=== PATIENT | female | born 1965 | race Caucasian/White ===

== ENCOUNTER → 2016-03-17 | Outpatient (CLI) | payer OTHER ==
[~2016-03-17] MED LIST: ACETAMINOPHEN/O1 TA1 PO; ALLERGY RELIEF10 M1 PO; AMBIEN10 M1 PO; ANASTROZOLE1 M1 PO; ARIPIPRAZOLE2 MG PO; ATIVAN1 MG PO; CELEXA40 MG PO; CLONAZEPAM1 MG PO; COLACE20 MG/5 ML PO; CYCLOBENZAPRINE5 M3 PO; CYMBALTA30 MG PO; CYMBALTA60 MG PO; DILAUDID2 M1 PO; ELIQUIS5 M1 PO; FLONASE 0.05% 121 EA NAS; GOLYTELY1 PDR PO; HYDROCODONE BIT1 T11 PO; LEVOFLOXACIN500 MG PO; MEDROL DOSEPAK4 MG PO; METOCLOPRAMIDE H5 MG PO; MIRTAZAPINE15 MG PO; NAPROSYN500 MG PO; NEURONTIN300 MG PO; NORCO 325 MG-101 TAB PO; NORTRIPTYLINE H10 MG PO; ONDANSETRON HYDR8 MG PO; OXYCODONE HCL10 M1 PO; OXYCODONE5 M1 PO; PANTOPRAZOLE SO40 MG PO; PERCOCET 325 MG1 TA7 PO; PHENERGAN25 M3 PO; PREDNISONE20 M1 PO; PRILOSEC20 M1 PO; PRILOSEC40 MG PO; PRISTIQ50 MG PO; REXULTI2 MG PO; ROBITUSSIN DM 101 OZ PO; SINGULAIR10 MG PO; TAMOXIFEN CITRA20 MG PO; VICO10300 PO; ZOFRAN8 MG PO; ZOVIRAX400 MG PO; Zofran4 MG PO
[2016-03-17 13:58] LABS: BUN 11 mg/dl (7-24); EST GLOM FILT AFRICAN AMERICAN > 60 ml/min
== END | disposition home or self-care (01) ==
LOC: CT 03-10 11:00 → LAB 13:25 → CT 14:00
PROVIDERS: Family Medicine
DX: R91.1 Solitary pulmonary nodule (principal); R07.89 Other chest pain; Z85.3 Personal history of malignant neoplasm of breast; Z90.11 Acquired absence of right breast and nipple; Z90.12 Acquired absence of left breast and nipple

== ENCOUNTER 2016-09-16 17:46 | Inpatient (IN) | payer OTHER ==
[~2016-09-16] VITALS: Ht 170.2 cm; Wt 60.6 kg
--- NOTE | ~2016-09-16 | CON ---
[place], [place] REPORT OF CONSULTATION NAME: JAG BHATTI UNIT #: [id number] ROOM: 416 DOCTOR: POLO LUGO PhD BIRTHDATE: [birth year] DOS: 09/17/2016 TIME: 11:15 a.m. LOCATION: ICU bed 12. HISTORY OF PRESENT ILLNESS: The patient is a 51-year-old female with primary medical history of breast cancer and possible lung metastasis. She presented to the ER last night after overdosing per her report on Ambien and Ativan. The patient stated that she took the medicine because she was feeling overwhelmed and then realized she did not want to and called her daughter who then transported her to the hospital. The patient is a known patient of mine, was last seen in our office yesterday by the nurse practitioner and then was in for counseling several months ago. Dr. Blackburn is her primary care doctor. MEDICAL HISTORY: Breast cancer, chronic pain, COPD, deep venous thrombosis, depression, generalized anxiety, GERD, insomnia, lung nodule, neuropathy, seasonal allergies and she does smoke cigarettes. Reports no other drug use. The patient was alert, awake and oriented to person, place, time. The patient did acknowledge that she impulsively took her medication, but she denied present suicidal ideation, plan or intent, stating that she knows that she does not want to . No history of hallucinations or delusions. The patient has been dealing with depression for several years coincided with her medical diagnosis of cancer in the outcome. She reports feeling very overwhelmed. Discussed options and asked if she felt she needed to be inpatient. She stated no, she does not want to and she just was overwhelmed and is having a hard time asking for help per her report. Discussed options, encouraged her to talk with the bilingual case manager from the hospital, who talked to her about housing options and she stated that she has talked to her daughter about going after a job and Family Services when discharged to seek assistance through them and I supported and encouraged her to do this. I also suggested she call the office upon discharge to get in to see her counselor and the nurse practitioner for medicine and she agreed to do that. She again denied being a risk of self-harm. DIAGNOSES: Major depression, recurrent, moderate, and anxiety. RECOMMENDATIONS: She can be discharged when medically stable and to follow up at the office for medication and counseling and she was open to the recommendations. I spoke with her treating physician and shared the recommendations and the outcome of my assessment. Thank you for the consult. [place], [place] REPORT OF CONSULTATION NAME: JAG BHATTI UNIT #: [id number] ROOM: [facility] DOCTOR: POLO LUGO PhD BIRTHDATE: [birth year] POLO LUGO, PhD CM:CONSTR:REPORT OF CONSULTATION 1148 09/18/16 0656 interface
[~2016-09-16 17:46] MED LIST changes: -ALLERGY RELIEF10 M1 PO; +ALLERGY RELIEF10 M2 PO; +SINGULAIR10 M1 PO; -SINGULAIR10 MG PO
[2016-09-16 17:56] VITALS: BP 135/87
[2016-09-16 18:39] LABS: BASO % 0.3 % (0.0-1.0); EOS % 0.2 % (1.0-4.0); HEMATOCRIT 38.9 % (37.0-47.0); HEMOGLOBIN 12.9 g/dl (12.0-16.0); LYMPH # 2.5 10*3/uL (1.3-4.4); LYMPH % 21.5 % (27.0-41.0); MEAN CELL VOLUME 90.5 fl (81.0-99.0); MEAN CORPUSCULAR HGB CONC 33.2 g/dl (33.0-37.0); MEAN PLATELET VOLUME 10.2 fl (9.6-12.3); MONO # 0.4 10*3/uL (0.1-1.0); MONO % 3.3 % (3.0-9.0); NEUT # 8.5 10*3/uL (2.3-7.9); NEUT % 74.4 % (47.0-73.0); PLATELET COUNT AUTOMATED 239 10*3/uL (130-400); RED CELL DISTRI WIDTH 15.4 % (0-14.5); WHITE BLOOD COUNT 11.5 10*3/uL (4.8-10.8)
[2016-09-16 18:41] VITALS: BP 132/66
[2016-09-16 18:52] LABS: BILIRUBIN NEGATIVE (NEGATIVE); BLOOD NEGATIVE (NEGATIVE); CLARITY SL CLOUDY (CLEAR); COLOR YELLOW (YELLOW); GLUCOSE NEGATIVE (NEGATIVE); KETONE NEGATIVE (NEGATIVE); LEUKO ESTERASE NEGATIVE (NEGATIVE); NITRITE POSITIVE (NEGATIVE); PH 6.5 (5.0-9.0); PROTEIN NEGATIVE (NEGATIVE); SPECIFIC GRAVITY <= 1.005 (1.005-1.030); UROBILINOGEN 0.2 E.U./dl (0.2-1.0)
[2016-09-16 18:56] LABS: ALBUMIN 3.7 gm/dl (3.1-4.5); ALKALINE PHOSPHATASE 92 U/L (45-117); BILIRUBIN, TOTAL 0.2 mg/dl (0.2-1.0); BUN 8 mg/dl (7-24); CARBON DIOXIDE 28 mmol/L (21-32); CHLORIDE 106 mmol/L (98-107); EST GLOM FILT AFRICAN AMERICAN > 60 ml/min; GLUCOSE 110 mg/dL (65-99); MAGNESIUM 2.2 mg/dL (1.5-2.1); POTASSIUM 3.2 mmol/L (3.5-5.1); SGOT/AST 19 IU/L (3-35); SGPT/ALT 21 U/L (12-78); SODIUM 143 mmol/L (136-145); TOTAL PROTEIN 6.8 gm/dL (6.4-8.2)
[2016-09-16 18:59] LABS: BACTERIA 4+; EPITHELIAL CELLS 0-2; RBC 0-2 rbc/hpf (0-2); URINE REFLEX COMMENT YES (NO); WBC 0-2 wbc/hpf (0-5)
[2016-09-16 19:00] LABS: C-REACTIVE PROTEIN < 0.29 MG/DL (0-0.3); TROPONIN I < 0.015 ng/ml (<0.045)
[2016-09-16 19:01] LABS: URINE AMPHETAMINES < 1000 (1000ng/ml); URINE BARBITURATES < 200 (200ng/ml); URINE COCAINE < 300 (300ng/ml)
[2016-09-16 19:15] VITALS: BP 134/78
[2016-09-16 20:00] VITALS: BP 139/94
[2016-09-17] VITALS: BP 101/72; BP 116/62
[2016-09-17 03:53] VITALS: BP 111/74
[2016-09-17 05:39] LABS: ALBUMIN 3.1 gm/dl (3.1-4.5); ALKALINE PHOSPHATASE 91 U/L (45-117); BILIRUBIN, TOTAL 0.2 mg/dl (0.2-1.0); BUN 8 mg/dl (7-24); CARBON DIOXIDE 27 mmol/L (21-32); CHLORIDE 109 mmol/L (98-107); CHOLESTEROL 180 mg/dL (<200); EST GLOM FILT AFRICAN AMERICAN > 60 ml/min; FREE T4 0.73 ng/dl (0.76-1.46); GLUCOSE 99 mg/dL (65-99); HDL CHOLESTEROL 59 mg/dl (40-60); LDL CHOLESTEROL 97 mg/dL (9-159); PHOSPHOROUS 3.3 mg/dL (2.5-4.9); POTASSIUM 3.4 mmol/L (3.5-5.1); SGOT/AST 21 IU/L (3-35); SGPT/ALT 21 U/L (12-78); SODIUM 144 mmol/L (136-145); TOTAL PROTEIN 6.6 gm/dL (6.4-8.2); TRIGLYCERIDES 119 mg/dl (<150); VLDL CHOLESTEROL 24 mg/dL (6-40)
[2016-09-17 05:54] LABS: HEMOGLOBIN A1c 5.8 % (4.8-5.6)
[2016-09-17 06:33] LABS: BASO # 0.1 10*3/uL (0.0-0.1); BASO % 0.6 % (0.0-1.0); EOS # 0.2 10*3/uL (0.0-0.4); EOS % 1.8 % (1.0-4.0); HEMATOCRIT 39.1 % (37.0-47.0); HEMOGLOBIN 12.3 g/dl (12.0-16.0); LYMPH # 3.5 10*3/uL (1.3-4.4); LYMPH % 39.9 % (27.0-41.0); MEAN CORPUSCULAR HGB 29.8 pg (27.0-31.0); MEAN CORPUSCULAR HGB CONC 31.5 g/dl (33.0-37.0); MEAN PLATELET VOLUME 10.6 fl (9.6-12.3); MONO # 0.3 10*3/uL (0.1-1.0); MONO % 3.9 % (3.0-9.0); NEUT # 4.7 10*3/uL (2.3-7.9); NEUT % 53.6 % (47.0-73.0); PLATELET COUNT AUTOMATED 234 10*3/uL (130-400); RED BLOOD COUNT 4.13 10*6/uL (4.10-5.10); RED CELL DISTRI WIDTH 15.8 % (0-14.5); WHITE BLOOD COUNT 8.8 10*3/uL (4.8-10.8)
[2016-09-17 06:43] LABS: VITAMIN D, 25-HYDROXY 20.2 ng/mL (30-100)
[2016-09-17 06:44] LABS: FOLIC ACID 4.46 ng/mL (>5.38)
[2016-09-17 06:46] LABS: MEAN CELL VOLUME 94.7 fl (81.0-99.0)
[2016-09-17 08:00] VITALS: BP 112/81
[2016-09-17 12:00] VITALS: BP 122/72; BP 150/94
[2016-09-17 16:00] VITALS: BP 113/70
[2016-09-17 20:00] VITALS: BP 123/78
[2016-09-18] VITALS: BP 115/65
[2016-09-18 08:00] VITALS: BP 113/78
[2016-09-18] MEDS ORDERED: PERCOCET 325 MG1 TA7 PO (10:45)
== END 2016-09-18 12:12 | disposition home or self-care (01) | DRG 917 ==
LOC: ED 17:46 → EDHOLD 18:59 → 4E 18:59 → ICCU 18:59 → 4E 09-17 18:39
PROVIDERS: Internal Medicine Hospice and Palliative Medicine; Student in an Organized Health Care Education/Training Program
DX: T42.6X2A Poisoning by other antiepileptic and sedative-hypnotic drugs, intentional self-harm, initial encounter (principal); A41.9 Sepsis, unspecified organism; E83.41 Hypermagnesemia; C50.912 Malignant neoplasm of unspecified site of left female breast; C50.911 Malignant neoplasm of unspecified site of right female breast; F33.1 Major depressive disorder, recurrent, moderate; N39.0 Urinary tract infection, site not specified; T50.902A Poisoning by unspecified drugs, medicaments and biological substances, intentional self-harm, initial encounter; R91.1 Solitary pulmonary nodule; F41.1 Generalized anxiety disorder; J30.2 Other seasonal allergic rhinitis; K21.9 Gastro-esophageal reflux disease without esophagitis; F17.210 Nicotine dependence, cigarettes, uncomplicated; F29 Unspecified psychosis not due to a substance or known physiological condition; R73.9 Hyperglycemia, unspecified; G89.29 Other chronic pain; J44.9 Chronic obstructive pulmonary disease, unspecified; M25.552 Pain in left hip; G62.9 Polyneuropathy, unspecified; E87.6 Hypokalemia; M54.16 Radiculopathy, lumbar region; Z88.5 Allergy status to narcotic agent; Z88.8 Allergy status to other drugs, medicaments and biological substances; Z82.49 Family history of ischemic heart disease and other diseases of the circulatory system; Z86.718 Personal history of other venous thrombosis and embolism; Z79.01 Long term (current) use of anticoagulants; Z90.13 Acquired absence of bilateral breasts and nipples; Z90.49 Acquired absence of other specified parts of digestive tract; Z59.0 Homelessness; Z71.6 Tobacco abuse counseling; Z17.0 Estrogen receptor positive status [ER+]; Y92.89 Other specified places as the place of occurrence of the external cause; Z80.3 Family history of malignant neoplasm of breast; Z83.3 Family history of diabetes mellitus

== ENCOUNTER → 2016-09-25 | Outpatient (CLI) | payer OTHER | END | disposition home or self-care (01) | LOC: NM 09:43 | DX: C50.919 Malignant neoplasm of unspecified site of unspecified female breast (principal); M17.0 Bilateral primary osteoarthritis of knee; K08.9 Disorder of teeth and supporting structures, unspecified; Z90.13 Acquired absence of bilateral breasts and nipples ==

== ENCOUNTER → 2016-10-02 | Outpatient (CLI) | payer OTHER | END | disposition home or self-care (01) | LOC: MRI 10:00 | DX: M48.06 Spinal stenosis, lumbar region (principal); M76.9 Unspecified enthesopathy, lower limb, excluding foot; Z85.3 Personal history of malignant neoplasm of breast ==

== ENCOUNTER → 2016-10-13 | Outpatient (CLI) | payer OTHER | END | disposition home or self-care (01) | LOC: RAD 09:57 | DX: M47.896 Other spondylosis, lumbar region (principal); M54.6 Pain in thoracic spine; Z85.3 Personal history of malignant neoplasm of breast ==

== ENCOUNTER 2016-12-13 22:12 | Inpatient (IN) | payer OTHER ==
[~2016-12-13] VITALS: Ht 170.2 cm; Wt 58.1 kg
--- NOTE | ~2016-12-13 | CON ---
[place], [place] REPORT OF CONSULTATION NAME: JAG BHATTI UNIT #: [id number] ROOM: 415 DOCTOR: PEACE GARCIA BIRTHDATE: [birth year] DOS: 12/15/2016 LOCATION: The patient was in ICU bed 6. HISTORY OF PRESENT ILLNESS: The patient is a 51-year-old female who presented to the ED with suicidal ideations per reports. The patient states that she is a breast cancer survivor. She has chronic pain, status post double mastectomy. She states that she had been taking Percocet as prescribed by Dr. Blackburn -4 times a day for the past 10 years. In July of this year, she said she did have an intentional overdose, but regretted it immediately and called for assistance. After that time, her Percocets were discontinued by Dr. Blackburn. The patient states since that time she has been having withdrawal symptoms and trying to manage her pain on her own. The patient states that she does not wish to hurt herself on this admission, nor has she had any suicidal ideations throughout the last week. She stated she is not trying to hurt herself and that she was just trying to help with her pain. She admits to cocaine, amphetamines and marijuana use. Her urine drug screen was positive for all these. She is agreeable to treatment at this time and would like to continue as soon as possible. She believes that if she can get through withdrawal from the Percocet, she will have a better quality of life. MEDICATIONS: The patient is on Benadryl, Ativan. PAST MEDICAL HISTORY: Significant for breast cancer, COPD, DVT, depression, generalized anxiety disorder, GERD, insomnia, overdose, suicidal ideation and suicide attempt. SOCIAL HISTORY: The patient has a history of amphetamine abuse, cocaine abuse. She denies alcohol. Admits to marijuana abuse, opiate abuse and smoker. PHYSICAL EXAMINATION: The patient is awake, alert and oriented in all 3 spheres. She initially knew that she was at [facility] and what the date was. She denies any hallucinations or delusions at this time. She again denies suicidal ideation. The patient states she is active in counseling with Zita Briones and plans to follow up with her upon discharge. The patient is currently staying with her children who are very supportive and involved and she plans to return home with them at the time of discharge from substance use treatment. DIAGNOSES: Depression, generalized anxiety disorder. RECOMMENDATIONS: The patient should return to a substance abuse treatment upon discharge. From there, she will follow up outpatient with her counselor and drug treatment. The patient will return home with her children. Again, this patient is not suicidal at this time per her repeated denial of any attempts or plan to hurt herself. Thank you very much for this consult. [place], [place] REPORT OF CONSULTATION NAME: JAG BHATTI UNIT #: [id number] ROOM: [facility] DOCTOR: PEACE GARCIA BIRTHDATE: [birth year] [place] CM:CONSTR:REPORT OF CONSULTATION 1308 12/15/16 2250 interface
[2016-12-13 22:27] VITALS: BP 146/98
[2016-12-13 22:34] LABS: BASO # 0.1 10*3/uL (0.0-0.1); BASO % 1.2 % (0.0-1.0); EOS # 0.2 10*3/uL (0.0-0.4); EOS % 2.3 % (1.0-4.0); HEMATOCRIT 43.2 % (37.0-47.0); HEMOGLOBIN 13.9 g/dl (12.0-16.0); LYMPH # 3.5 10*3/uL (1.3-4.4); LYMPH % 43.5 % (27.0-41.0); MEAN CELL VOLUME 92.5 fl (81.0-99.0); MEAN CORPUSCULAR HGB 29.8 pg (27.0-31.0); MEAN CORPUSCULAR HGB CONC 32.2 g/dl (33.0-37.0); MONO # 0.4 10*3/uL (0.1-1.0); MONO % 5.2 % (3.0-9.0); NEUT # 3.9 10*3/uL (2.3-7.9); NEUT % 47.7 % (47.0-73.0); PLATELET COUNT AUTOMATED 236 10*3/uL (130-400); RED BLOOD COUNT 4.67 10*6/uL (4.10-5.10); RED CELL DISTRI WIDTH 14.7 % (0-14.5); WHITE BLOOD COUNT 8.1 10*3/uL (4.8-10.8)
[2016-12-13 22:50] LABS: ALBUMIN 3.9 gm/dl (3.1-4.5); ALKALINE PHOSPHATASE 101 U/L (45-117); BUN 6 mg/dl (7-24); CHLORIDE 105 mmol/L (98-107); CREATININE 0.88 mg/dL (0.55-1.02); POTASSIUM 3.4 mmol/L (3.5-5.1); SGOT/AST 17 IU/L (3-35); SGPT/ALT 19 U/L (12-78); SODIUM 141 mmol/L (136-145); TOTAL PROTEIN 7.7 gm/dL (6.4-8.2)
[2016-12-13 22:58] LABS: BILIRUBIN NEGATIVE (NEGATIVE); BLOOD NEGATIVE (NEGATIVE); CLARITY CLEAR (CLEAR); COLOR YELLOW (YELLOW); GLUCOSE NEGATIVE (NEGATIVE); KETONE NEGATIVE (NEGATIVE); LEUKO ESTERASE NEGATIVE (NEGATIVE); NITRITE NEGATIVE (NEGATIVE); PH 6.5 (5.0-9.0); SPECIFIC GRAVITY <= 1.005 (1.005-1.030); UROBILINOGEN 0.2 E.U./dl (0.2-1.0)
[2016-12-13 23:05] LABS: BACTERIA TRACE; EPITHELIAL CELLS 30-35
[2016-12-13 23:08] LABS: URINE AMPHETAMINES > 1000 (1000ng/ml); URINE BARBITURATES < 200 (200ng/ml); URINE BENZODIAZEPINES < 200 (200ng/ml); URINE CANNABINOIDS (THC) > 50 (50ng/ml); URINE COCAINE > 300 (300ng/ml); URINE METHADONE < 300 (300ng/ml); URINE OPIATES > 300 (300ng/ml)
[2016-12-13 23:09] LABS: URINE PHENCYCLIDINE < 25 (25ng/ml)
--- NOTE | 2016-12-13 23:21 | NUR ---
PT IN ROOM, DAUGHTER PRESENT, STILL CRYING
--- NOTE | 2016-12-14 00:24 | NUR ---
PT SITTING UP IN BED, NO ACUTE DISTRESS
--- NOTE | 2016-12-14 00:46 | NUR ---
PT LYING IN BED, REQUESTING MORE ATIVAN AND SOMETHING FOR HER BACK PAIN, DENIES SUICIDAL IDEATIONS "NOW"
[2016-12-14 02:53] VITALS: BP 134/86
--- NOTE | 2016-12-14 04:05 | NUR ---
PT RESTING IN BED QUIETLY, NO DISTRESS NOTED
--- NOTE | 2016-12-14 04:54 | NUR ---
PT RESTING IN BED. NO REQUESTS AT THIS. NO VIS SIGNS OF DISTRESS
[2016-12-14 06:07] VITALS: BP 117/74
--- NOTE | 2016-12-14 06:08 | NUR ---
PT RESTING IN BED. NO VIS SIGNS OF DISTRESS OR NEEDS EXPRESSED AT THIS TIME.
--- NOTE | 2016-12-14 06:12 | NUR ---
PT RESTING IN BED. NO VIS SIGNS OF DISTRESS. VSS. DANIELLE HERNANDEZ CONATCTED BY DR ALCANTARA
--- NOTE | 2016-12-14 07:10 | NUR ---
RECEIVED REPORT FROM PM NURSE. RESTING QUIETLY IN BED, RIGHT LATERAL POSITION. NO SIGN OF DISTRESS. BREAKFAST ORDER ENTERED.
--- NOTE | 2016-12-14 07:44 | NUR ---
PATIENT RESTING IN BED. BREAKFAST AT BEDSIDE. STATES SHES NOT VERY HUNGRY. NO COMPLAINTS AT THIS TIME. BED IN LOW. CALL LIGHT IN REACH.
--- NOTE | 2016-12-14 08:44 | NUR ---
RESTING IN BED. NO SIGN OF DISTRESS. IN VIEW OF NURSES STATION.
[2016-12-14 08:51] VITALS: BP 118/84
--- NOTE | 2016-12-14 10:11 | NUR ---
met with client who is known to me , she denies suicidal ideation, she said that the main issue is that she is abusing percosets and she wants to get off of these and get into a [facility]ox[facility] clinic, she thinks that she is withdrawing. [facility], i did talk with the doctor and we will see what they want to do.
--- NOTE | 2016-12-14 10:25 | NUR ---
DANIELLE HERNANDEZ WAS IN ROOM TO SPEAK WITH PATIENT.
--- NOTE | 2016-12-14 10:55 | NUR ---
RESTING QUIETLY IN BED. NO COMPLAINTS. DANIELLE WAS IN TO SEE PATIENT FOR EVAL. IN VIEW OF NURSES DESK.
--- NOTE | 2016-12-14 11:46 | NUR ---
patient in bed, left lateral position. no sign of distress. in view of nurses station.
--- NOTE | 2016-12-14 12:45 | NUR ---
PT SITTING UP IN BED. DANIELLE CEBALLOSW AT BEDSIDE. NO SIGN OF DISTRESS. IN VIEW OF NURSES STATION.
--- NOTE | 2016-12-14 12:53 | NUR ---
[facility] STAFF IN ROOM SPEAKIGN WITH PATIENT.
--- NOTE | 2016-12-14 13:30 | NUR ---
REPORT CALLED TO DANIELLE RN FROM [facility]IANA BEAUCHAMP. PATIENT STABLE AND READY FOR TRANSPORT TO [facility].
[2016-12-14 13:45] VITALS: BP 120/70
--- NOTE | 2016-12-14 13:45 | NUR ---
Time: 1344 A 51 year old FEMALE admitted to ICCU under services of KAYLA BELLE DO. Pt. arrived via wheel chair from ER. Chief complaint: ADMITTED FROM ER WITH SUICIDAL IDEATIONS AND SUBSTANCE ABUSE. TO BE ADMITTED TO THE [facility] PROGRAM. DANIELLE KENNEDY
[2016-12-14] MEDS ORDERED: ATIVAN0.5 MG PO (14:04)
--- NOTE | 2016-12-14 14:04 | NUR ---
MED REC COMPLETED WITH [facility], PT DOES USUALLY TAKE ALL THESE MEDS BUT HAS RAN OUT OF PRESCRIPTIONS D/TY DR ISAAC LEAVING. TIM VALENCIA FILLED TAMOXIFAN, ATIVAN AND CYMBALTA IN NOVEMBER. ALL OTHER SCRIPTS HAD NOT BEEN REFILLED SINCE 09/09/16. DR CARLIE MADDOX.
[2016-12-14 14:15] LABS: BASO # 0.1 10*3/uL (0.0-0.1); BASO % 1.2 % (0.0-1.0); EOS # 0.2 10*3/uL (0.0-0.4); HEMATOCRIT 43.6 % (37.0-47.0); HEMOGLOBIN 14.3 g/dl (12.0-16.0); LYMPH # 2.4 10*3/uL (1.3-4.4); LYMPH % 30.9 % (27.0-41.0); MEAN CELL VOLUME 90.6 fl (81.0-99.0); MEAN CORPUSCULAR HGB 29.7 pg (27.0-31.0); MEAN CORPUSCULAR HGB CONC 32.8 g/dl (33.0-37.0); MEAN PLATELET VOLUME 10.1 fl (9.6-12.3); MONO # 0.4 10*3/uL (0.1-1.0); MONO % 5.8 % (3.0-9.0); NEUT # 4.5 10*3/uL (2.3-7.9); NEUT % 58.7 % (47.0-73.0); PLATELET COUNT AUTOMATED 240 10*3/uL (130-400); RED BLOOD COUNT 4.81 10*6/uL (4.10-5.10); RED CELL DISTRI WIDTH 14.6 % (0-14.5); WHITE BLOOD COUNT 7.6 10*3/uL (4.8-10.8)
[2016-12-14 14:23] LABS: INTERNATIONAL NORM RATIO 1.1 (2.0-3.5)
[2016-12-14 14:30] LABS: ALBUMIN 3.7 gm/dl (3.1-4.5); ALKALINE PHOSPHATASE 99 U/L (45-117); BUN 5 mg/dl (7-24); CHLORIDE 105 mmol/L (98-107); CREATININE 0.79 mg/dL (0.55-1.02); LIPASE 94 U/L (73-393); POTASSIUM 3.7 mmol/L (3.5-5.1); SGOT/AST 24 IU/L (3-35); SGPT/ALT 21 U/L (12-78); SODIUM 141 mmol/L (136-145); TOTAL PROTEIN 7.3 gm/dL (6.4-8.2)
--- NOTE | 2016-12-14 14:30 | NUR ---
Recieved to ICCU-6 post admission to medical floor for possible suicidal ideation. Pt. adamantly denies suicidal ideation on arrival see VS from nursing floor. Voiced concern over medication distribution. Dr. Fraire in and spoke w/ pt. explaining plan of care. Urine HCG resulted.
--- NOTE | 2016-12-14 14:30 | NUR ---
PATIENT TRANSFERRED TO ICCU. REPORT GIVEN TO JOSUÉ ENGEL.
[2016-12-14 14:32] LABS: ETHYL ALCOHOL < 3.0 mg/dl (<3)
--- NOTE | 2016-12-14 15:33 | NUR ---
1450 Medicated for c/o leg cramping and anxiety. smell of ciggarettes in room. Pt. admits to smoking in the bathroom. ciggarettes confiscated and placed in med drawer. Pt. removed monitor and dressed in street cloths. Dr. Palacios office was notified of consult.
--- NOTE | 2016-12-14 16:28 | NUR ---
Medicatedfor c/o stomach cramping and generalized aches.
--- NOTE | 2016-12-14 18:54 | NUR ---
Medicated for continued c/o restless and cramping legs as well as generalized discomfort. Requesting nicotrol INH. Pharmacy was called.
--- NOTE | 2016-12-14 19:56 | NUR ---
PT. RESTING IN BED. NO IV SITE NOTED. LUNGS CLEAR BUT DIMINISHED BILAT, PULSE OX 95% ON RA. ABDOMEN SOFT, NONDISTENDED AND NORMO. NO PERIPHERAL EDEMA NOTED. RESP. EASY AND REG, NO DISTRESS. HARVEY KOEHLER RN
[2016-12-14 20:00] VITALS: BP 105/72
--- NOTE | 2016-12-14 20:57 | NUR ---
PT. GIVEN BENTYL, DESYREL, ROBAXIN AND VISTARIL ORDERED FOR ABD AND MUSCLE CRAMPS, ANXIETY AND SLEEP. HARVEY KOEHLER RN
[2016-12-15] VITALS: BP 104/70
--- NOTE | 2016-12-15 00:04 | NUR ---
PT. SLEEPING, BENTYL, DESYREL, ROBAXIN AND VISTARIL EFFECTIVE. HARVEY KOEHLER RN
--- NOTE | 2016-12-15 00:29 | NUR ---
MOTRIN GIVEN AT 0030 FOR GENERALIZED ACHES AND PAINS.
--- NOTE | 2016-12-15 02:26 | NUR ---
PT. SLEEPING, MOTRIN EFFECTIVE FOR GENERAL ACHES AND PAINS. HARVEY KOEHLER RN
--- NOTE | 2016-12-15 03:39 | NUR ---
PT. GIVEN BENTYL, ROBAXIN AND VISTARIL ORDERED FOR CRAMPS AND ANXIETY.
[2016-12-15 04:00] VITALS: BP 98/57
--- NOTE | 2016-12-15 04:09 | NUR ---
PT. SLEEPING, BENTYL, ROBAXIN AND VISTARIL EFFECTIVE. HARVEY KOEHLER RN
--- NOTE | 2016-12-15 07:54 | NUR ---
Shift chart check completed.24 HR chart check completed. On assessment patient is alert and oriented, sitting up in bed, eating breakfast. She offered no voiced complaints. Her voice is soft, she makes eye contact, her affect is flat. She denies suicidal feelings at this time.
[2016-12-15 08:00] VITALS: BP 90/60
--- NOTE | 2016-12-15 10:45 | NUR ---
PT WAS MEDICATED AT 0917 WITH REQUIP FOR RESTLESS LEGS, MOTRIN AND ROBAXIN FOR "ACHES AND PAIN". SHE'S LYING QUIETLY IN BED, WAITING FOR DR FRANK PALMA TO COME IN FOR CONSULTATION.
[2016-12-15 12:00] VITALS: BP 102/52
--- NOTE | 2016-12-15 12:48 | NUR ---
DR DAVEY NOTIFIED THAT PEACE GARCIA HAS SEEN PATIENT AND WILL BE DOCUMENTING THAT PT IS NOT SUICIDAL. PT IS RESTING SINCE EARLIER PRN MEDS. WILL CONTINUE TO MONITOR FOR WITHDRAWL SYMPTOMS.
--- NOTE | 2016-12-15 13:19 | NUR ---
PRODUCT STRATEGY DIRECTOR REMOVED PT NOW NON-MONITORED. HER SCHEDULED SUBUTEX GIVEN AND A PRN DOSE OF VISTARIL FOR ANXIETY.
--- NOTE | 2016-12-15 14:44 | NUR ---
AMBULATORY TO 415-2, IN STABLE CONDITION, WITH ALL OF HER BELONGINGS. HER CIGARETTES LOCKED IN THE WALLEROO. REPORT TO JOSUÉ.
--- NOTE | 2016-12-15 15:50 | NUR ---
Patient reports the following symptoms of withdrawal: body aches, HIPS Patient given scheduled/PRN ROBAXIN AND TYLENOL 500MG to control withdrawal symptoms. Close observation will be maintained. RATES PAIN A 9/10.
[2016-12-15 16:00] VITALS: BP 104/63
--- NOTE | 2016-12-15 18:34 | NUR ---
Medicatedforpainandanxiety.seee-mar
[2016-12-15 20:00] VITALS: BP 83/48
--- NOTE | 2016-12-15 21:57 | NUR ---
PT REQUESTED PAIN MEDICATION FOR GENERALIZED PAIN RATED AT AN 8. ALSO REQUESTED MEDICATION FOR INSOMNIA. TRAZADONE AND TYLENOL WERE GIVEN.
--- NOTE | 2016-12-15 22:49 | NUR ---
TRAZADONE INEFFECTIVE PER PT. SEE MAR FOR INTERVENTION. TYLENOL EFFECTIVE PER PT. RATES PAIN AT 3 OUT OF 10.
--- NOTE | 2016-12-15 23:42 | NUR ---
PT REQUESTED MEDICATION FRO MUSCLE SPASMS. ROBAXIN GIVEN.
--- NOTE | 2016-12-15 23:46 | NUR ---
TRAZADONE WAS INEFFECTIVE PER PT. REQUESTED ANOTHER. 2ND DOSE OF TRAZADONE GIVEN.
[2016-12-16] VITALS: BP 86/57
--- NOTE | 2016-12-16 00:36 | NUR ---
TRAZADONE AND ROBAXIN EFFECTIVE. PT IN BED SLEEPING. NO DISTRESS NOTED.
--- NOTE | 2016-12-16 05:55 | NUR ---
PT REQUESTED MEDICATION FOR GENERALIZED PAIN AND MUSCLE PAIN/SPASMS. PT RATES PAIN AT 7 OUT OF 10. TYLENOL AND ROBAXIN GIVEN.
--- NOTE | 2016-12-16 06:32 | NUR ---
TYLENOL AND ROBAXIN EFFECTIVE. PT REPORTS DECREASED MUSCLE PAIN/SPAMS AND RATES PAIN AT 3 OUT OF 10.
[2016-12-16 08:00] VITALS: BP 92/56
--- NOTE | 2016-12-16 08:37 | NUR ---
PRN VISTARIL GIVEN FOR ANXIETY.
--- NOTE | 2016-12-16 08:38 | NUR ---
PRN REQUIP GIVEN FOR RESTLESS LEGS.
--- NOTE | 2016-12-16 09:38 | NUR ---
PRN REQUIP EFFECTIVE, PT DENIES ANY RESTLESS LEG.
--- NOTE | 2016-12-16 09:38 | NUR ---
PRN VISTARIL EFFECTIVE, PT RESTING COMFORTABLY.
[2016-12-16 12:00] VITALS: BP 102/57
--- NOTE | 2016-12-16 13:40 | NUR ---
PATIENT SET UP APPOINTMENT WITH [facility] IN [place]. PATIENT STATED THAT SHE HAS AN APPOINTMENT FOR TOMORROW. [facility] OFFERED A LIST OF SELF-HELP MEETINGS, PATIENT DECLINED. YEIMY ANDRES B.A. MOTOR POOL DRIVER
--- NOTE | 2016-12-16 14:13 | NUR ---
prn vistaril given for pt report of anxiety.
--- NOTE | 2016-12-16 14:14 | NUR ---
prn motrin and robaxin given for 7/10 muscle aches of arms and legs and back pain.
--- NOTE | 2016-12-16 14:35 | NUR ---
DR DAVEY NOTIFIED THAT PATIENT HAS AN APPT [place] AT 12:[address] [place] [address].
--- NOTE | 2016-12-16 15:35 | NUR ---
PRN PAIN MEDS EFFECTIVE, PT RATES HER PAIN 4/10 TO BACK.
[2016-12-16 16:31] VITALS: BP 94/58
[2016-12-16 20:00] VITALS: BP 86/55
--- NOTE | 2016-12-16 20:00 | NUR ---
PT IN BED, RESTING QUIETLY. LUNGS DIMINISHED AND CLEAR. DENIES DYSURIA, FREQUENCY AT THIS TIME. PT REQUESTED ROBAXIN, REQUIP, AND VISTARIL. MEDS WERE GIVEN PER REQUEST. NO OTHER COMPLAINTS AT THIS TIME.
--- NOTE | 2016-12-16 22:49 | NUR ---
PT REQUESTED PRN MEDS FOR PAIN, MUSCLE SPASMS, AND INSOMNIA. MEDS GIVEN. SEE MAR.
--- NOTE | 2016-12-16 23:28 | NUR ---
PT STATES MEDICATIONS WERE EFFECTIVE. DECERASED PAIN, MUSCLE SPASMS NOTED.
--- NOTE | 2016-12-16 23:38 | NUR ---
TRAZADONE INEFFECTIVE. PT REQUESTED SECOND DOSE. GIVEN.
[2016-12-17] VITALS: BP 103/54
--- NOTE | 2016-12-17 04:21 | NUR ---
PT. C/O BACK AND LEG PAIN . RATED "7" TYLENOL AND ROBAXIN GIVEN FOR THIS. VISTARIL GIVEN FOR C/O ANXIETY. SEE MAR.
--- NOTE | 2016-12-17 05:20 | NUR ---
TYLENOL VISTARIL AND ROBAXIN EFFECTIVE FOR DISCOMFORT AND ANXIETY PER PT.
[2016-12-17 06:17] LABS: BASO # 0.1 10*3/uL (0.0-0.1); BASO % 1.1 % (0.0-1.0); EOS # 0.2 10*3/uL (0.0-0.4); EOS % 4.5 % (1.0-4.0); HEMATOCRIT 37.5 % (37.0-47.0); HEMOGLOBIN 11.9 g/dl (12.0-16.0); LYMPH # 2.4 10*3/uL (1.3-4.4); LYMPH % 45.9 % (27.0-41.0); MEAN CELL VOLUME 94.2 fl (81.0-99.0); MEAN CORPUSCULAR HGB 29.9 pg (27.0-31.0); MEAN CORPUSCULAR HGB CONC 31.7 g/dl (33.0-37.0); MEAN PLATELET VOLUME 10.7 fl (9.6-12.3); MONO # 0.3 10*3/uL (0.1-1.0); MONO % 5.9 % (3.0-9.0); NEUT # 2.2 10*3/uL (2.3-7.9); NEUT % 42.4 % (47.0-73.0); PLATELET COUNT AUTOMATED 204 10*3/uL (130-400); RED BLOOD COUNT 3.98 10*6/uL (4.10-5.10); RED CELL DISTRI WIDTH 14.4 % (0-14.5); WHITE BLOOD COUNT 5.3 10*3/uL (4.8-10.8)
[2016-12-17 06:44] LABS: CREATININE 0.78 mg/dL (0.55-1.02)
[2016-12-17 08:00] VITALS: BP 96/50
--- NOTE | 2016-12-17 08:47 | NUR ---
PT GIVEN REQUIP FOR RESTLESS LEGS.
--- NOTE | 2016-12-17 08:47 | NUR ---
PT GIVEN MOTRIN FOR GENERALIZED ACHES AND PAINS RATED 7/10.
--- NOTE | 2016-12-17 09:17 | NUR ---
PT STATES PAIN LEVEL REDUCED TO 5/10.
--- NOTE | 2016-12-17 09:18 | NUR ---
PT STATES RESTLESSNESS IS REDUCED POST RESTILE ADMIN.
[2016-12-17] MEDS ORDERED: NATURE'S BLEND F1 MG PO (09:38)
[2016-12-17] MEDS ORDERED: NATURE'S BLEND100 M2 PO (09:38)
[2016-12-17] MEDS ORDERED: THERA TABLET400 MCG PO (09:38)
[2016-12-17] MEDS ORDERED: METHOCARBAMOL750 M1 PO (10:46)
--- NOTE | 2016-12-17 11:40 | NUR ---
Discharge instructions reviewed with patient/family. Patient receptive and verbalizes understanding. Follow-up care arranged. Written instructions given to patient/family. PATIENT AMBULATORY OFF FLOOR. PICKED UP BY FAMILY. SCRIPTS SENT TO PHARMACY AND PATIENT NOTIFIED. KAELYN HORVATH
== END 2016-12-17 11:40 | disposition home or self-care (01) | DRG 897 ==
LOC: ED 22:12 → ICCU 12-14 13:04 → EDHOLD 12-14 13:04 → 4E 12-14 13:12 → 5E 12-14 13:12 → ICCU 12-14 13:55 → 4E 12-15 15:00
PROVIDERS: Internal Medicine; Student in an Organized Health Care Education/Training Program; ADMIT Internal Medicine
DX: F11.23 Opioid dependence with withdrawal (principal); G62.9 Polyneuropathy, unspecified; F32.9 Major depressive disorder, single episode, unspecified; J44.9 Chronic obstructive pulmonary disease, unspecified; K21.9 Gastro-esophageal reflux disease without esophagitis; F41.1 Generalized anxiety disorder; G47.00 Insomnia, unspecified; G89.29 Other chronic pain; F14.10 Cocaine abuse, uncomplicated; G25.81 Restless legs syndrome; F17.210 Nicotine dependence, cigarettes, uncomplicated; F15.10 Other stimulant abuse, uncomplicated; F12.10 Cannabis abuse, uncomplicated; Z85.3 Personal history of malignant neoplasm of breast; Z86.718 Personal history of other venous thrombosis and embolism; Z87.440 Personal history of urinary (tract) infections; Z90.13 Acquired absence of bilateral breasts and nipples; Z59.0 Homelessness; Z90.49 Acquired absence of other specified parts of digestive tract; Z90.710 Acquired absence of both cervix and uterus; Z86.010 Personal history of colon polyps; Z82.49 Family history of ischemic heart disease and other diseases of the circulatory system; Z83.3 Family history of diabetes mellitus; Z88.6 Allergy status to analgesic agent; Z88.1 Allergy status to other antibiotic agents; Z79.899 Other long term (current) drug therapy; Z71.6 Tobacco abuse counseling

== ENCOUNTER 2017-03-06 00:46 | Inpatient (IN) | payer MEDICARE, MEDICAID ==
[~2017-03-06] VITALS: Ht 170.1 cm; Wt 59.2 kg
[2017-03-06] VITALS (11 sets, daily range): BP systolic 90–114; BP diastolic 52–74
[~2017-03-06 00:46] MED LIST changes: +ATIVAN0.5 MG PO; +METHOCARBAMOL750 M1 PO; +NATURE'S BLEND F1 MG PO; +NATURE'S BLEND100 M2 PO; +THERA TABLET400 MCG PO
[2017-03-06 01:06] LABS: BILIRUBIN NEGATIVE (NEGATIVE); BLOOD NEGATIVE (NEGATIVE); CLARITY CLEAR (CLEAR); COLOR YELLOW (YELLOW); GLUCOSE NEGATIVE (NEGATIVE); KETONE NEGATIVE (NEGATIVE); LEUKO ESTERASE NEGATIVE (NEGATIVE); NITRITE NEGATIVE (NEGATIVE); PH 5.5 (5.0-9.0); SPECIFIC GRAVITY <= 1.005 (1.005-1.030); UROBILINOGEN 0.2 E.U./dl (0.2-1.0)
[2017-03-06 01:18] LABS: BACTERIA 2+; EPITHELIAL CELLS 45-50; URINE AMPHETAMINES < 1000 (1000ng/ml); URINE BARBITURATES < 200 (200ng/ml); URINE BENZODIAZEPINES < 200 (200ng/ml); URINE CANNABINOIDS (THC) > 50 (50ng/ml); URINE COCAINE > 300 (300ng/ml); URINE METHADONE < 300 (300ng/ml); URINE OPIATES > 300 (300ng/ml); WBC 16-20 wbc/hpf (0-5)
[2017-03-06 01:21] LABS: URINE PHENCYCLIDINE < 25 (25ng/ml)
[2017-03-06 01:22] LABS: BASO # 0.1 10*3/uL (0.0-0.1); BASO % 1.1 % (0.0-1.0); EOS # 0.4 10*3/uL (0.0-0.4); EOS % 6.2 % (1.0-4.0); HEMATOCRIT 38.8 % (37.0-47.0); HEMOGLOBIN 12.7 g/dl (12.0-16.0); LYMPH # 2.9 10*3/uL (1.3-4.4); LYMPH % 43.1 % (27.0-41.0); MEAN CELL VOLUME 90.2 fl (81.0-99.0); MEAN CORPUSCULAR HGB 29.5 pg (27.0-31.0); MEAN CORPUSCULAR HGB CONC 32.7 g/dl (33.0-37.0); MEAN PLATELET VOLUME 10.4 fl (9.6-12.3); MONO # 0.5 10*3/uL (0.1-1.0); MONO % 6.8 % (3.0-9.0); NEUT # 2.8 10*3/uL (2.3-7.9); NEUT % 42.6 % (47.0-73.0); PLATELET COUNT AUTOMATED 238 10*3/uL (130-400); RED CELL DISTRI WIDTH 15.1 % (0-14.5); WHITE BLOOD COUNT 6.6 10*3/uL (4.8-10.8)
[2017-03-06 01:39] LABS: ACETAMINOPHEN (TYLENOL) < 2.0 ug/ml (10-30); ALBUMIN 3.5 gm/dl (3.1-4.5); ALKALINE PHOSPHATASE 88 U/L (45-117); BUN 6 mg/dl (7-24); CHLORIDE 104 mmol/L (98-107); CREATININE 0.91 mg/dL (0.55-1.02); POTASSIUM 3.1 mmol/L (3.5-5.1); SGOT/AST 32 IU/L (3-35); SGPT/ALT 23 U/L (12-78); SODIUM 139 mmol/L (136-145); TOTAL PROTEIN 6.8 gm/dL (6.4-8.2)
[2017-03-06 06:27] LABS: BASO # 0.1 10*3/uL (0.0-0.1); BASO % 1.3 % (0.0-1.0); EOS # 0.3 10*3/uL (0.0-0.4); EOS % 6.7 % (1.0-4.0); HEMATOCRIT 36.6 % (37.0-47.0); LYMPH % 41.6 % (27.0-41.0); MEAN CELL VOLUME 91.5 fl (81.0-99.0); MEAN CORPUSCULAR HGB CONC 32.8 g/dl (33.0-37.0); MEAN PLATELET VOLUME 10.5 fl (9.6-12.3); MONO # 0.4 10*3/uL (0.1-1.0); MONO % 8.4 % (3.0-9.0); PLATELET COUNT AUTOMATED 215 10*3/uL (130-400); RED CELL DISTRI WIDTH 15.1 % (0-14.5); WHITE BLOOD COUNT 4.8 10*3/uL (4.8-10.8)
[2017-03-06 06:55] LABS: ALBUMIN 3.1 gm/dl (3.1-4.5); ALKALINE PHOSPHATASE 81 U/L (45-117); BUN 4 mg/dl (7-24); CHLORIDE 107 mmol/L (98-107); CHOLESTEROL 142 mg/dL (<200); CREATININE 0.76 mg/dL (0.55-1.02); HDL CHOLESTEROL 62 mg/dl (40-60); LDL CHOLESTEROL 59 mg/dL (9-159); PHOSPHOROUS 3.8 mg/dL (2.5-4.9); POTASSIUM 3.2 mmol/L (3.5-5.1); SGOT/AST 25 IU/L (3-35); SGPT/ALT 21 U/L (12-78); SODIUM 144 mmol/L (136-145); TOTAL PROTEIN 6.1 gm/dL (6.4-8.2); TRIGLYCERIDES 103 mg/dl (<150); VLDL CHOLESTEROL 21 mg/dL (6-40)
[2017-03-06 08:54] LABS: VITAMIN D, 25-HYDROXY 8.7 ng/mL (30-100)
[2017-03-06] MEDS ORDERED: CYMBALTA60 MG PO (10:21)
[2017-03-06] MEDS ORDERED: KLONOPIN0.5 MG PO (10:21)
[2017-03-07] VITALS: BP 103/65
[2017-03-07 04:00] VITALS: BP 120/76
[2017-03-07 06:09] LABS: BASO # 0.1 10*3/uL (0.0-0.1); BASO % 1.2 % (0.0-1.0); EOS # 0.2 10*3/uL (0.0-0.4); EOS % 5.5 % (1.0-4.0); HEMATOCRIT 35.3 % (37.0-47.0); HEMOGLOBIN 11.3 g/dl (12.0-16.0); LYMPH # 2.1 10*3/uL (1.3-4.4); LYMPH % 49.4 % (27.0-41.0); MEAN CELL VOLUME 93.9 fl (81.0-99.0); MEAN CORPUSCULAR HGB 30.1 pg (27.0-31.0); MEAN PLATELET VOLUME 10.4 fl (9.6-12.3); MONO # 0.3 10*3/uL (0.1-1.0); MONO % 7.4 % (3.0-9.0); NEUT # 1.5 10*3/uL (2.3-7.9); NEUT % 36.5 % (47.0-73.0); PLATELET COUNT AUTOMATED 195 10*3/uL (130-400); RED BLOOD COUNT 3.76 10*6/uL (4.10-5.10); RED CELL DISTRI WIDTH 15.8 % (0-14.5); WHITE BLOOD COUNT 4.2 10*3/uL (4.8-10.8)
[2017-03-07 06:21] LABS: BUN 6 mg/dl (7-24); CHLORIDE 114 mmol/L (98-107); CREATININE 0.69 mg/dL (0.55-1.02); POTASSIUM 3.8 mmol/L (3.5-5.1); SODIUM 146 mmol/L (136-145)
[2017-03-07 08:00] VITALS: BP 97/73
[2017-03-07 10:21] VITALS: BP 97/73
== END 2017-03-07 14:37 | disposition home or self-care (01) | DRG 918 ==
LOC: ED 00:46 → EDHOLD 02:11 → ICCU 02:38
PROVIDERS: Emergency Medicine Emergency Medical Services; Family Medicine; Hospitalist
DX: T42.4X2A Poisoning by benzodiazepines, intentional self-harm, initial encounter (principal); G62.9 Polyneuropathy, unspecified; R45.851 Suicidal ideations; C50.919 Malignant neoplasm of unspecified site of unspecified female breast; I82.722 Chronic embolism and thrombosis of deep veins of left upper extremity; N39.0 Urinary tract infection, site not specified; F32.9 Major depressive disorder, single episode, unspecified; F41.1 Generalized anxiety disorder; K21.9 Gastro-esophageal reflux disease without esophagitis; T43.212A Poisoning by selective serotonin and norepinephrine reuptake inhibitors, intentional self-harm, initial encounter; Y92.89 Other specified places as the place of occurrence of the external cause; J44.9 Chronic obstructive pulmonary disease, unspecified; G47.00 Insomnia, unspecified; F19.10 Other psychoactive substance abuse, uncomplicated; F10.10 Alcohol abuse, uncomplicated; F12.10 Cannabis abuse, uncomplicated; F17.210 Nicotine dependence, cigarettes, uncomplicated; F14.10 Cocaine abuse, uncomplicated; F11.10 Opioid abuse, uncomplicated; Z90.13 Acquired absence of bilateral breasts and nipples; Z90.49 Acquired absence of other specified parts of digestive tract; Z90.710 Acquired absence of both cervix and uterus; Z83.3 Family history of diabetes mellitus; Z85.3 Personal history of malignant neoplasm of breast; Z79.899 Other long term (current) drug therapy; Z88.8 Allergy status to other drugs, medicaments and biological substances; Z80.3 Family history of malignant neoplasm of breast; Z82.0 Family history of epilepsy and other diseases of the nervous system; Z84.89 Family history of other specified conditions; Z82.49 Family history of ischemic heart disease and other diseases of the circulatory system; Z80.8 Family history of malignant neoplasm of other organs or systems

== ENCOUNTER 2017-05-26 21:32 | Inpatient (IN) | payer MEDICARE, MEDICAID ==
[~2017-05-26] VITALS: Ht 170.2 cm; Wt 57.9 kg
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
[~2017-05-26 21:32] MED LIST changes: +KLONOPIN0.5 MG PO
[2017-05-26 21:40] VITALS: BP 102/72
[2017-05-26 22:00] VITALS: BP 100/65
[2017-05-26 22:02] LABS: BASO # 0.1 10*3/uL (0.0-0.1); BASO % 1.1 % (0.0-1.0); EOS # 0.2 10*3/uL (0.0-0.4); EOS % 2.5 % (1.0-4.0); HEMATOCRIT 40.2 % (37.0-47.0); HEMOGLOBIN 12.9 g/dl (12.0-16.0); LYMPH # 3.1 10*3/uL (1.3-4.4); LYMPH % 38.7 % (27.0-41.0); MEAN CELL VOLUME 90.1 fl (81.0-99.0); MEAN CORPUSCULAR HGB 28.9 pg (27.0-31.0); MEAN CORPUSCULAR HGB CONC 32.1 g/dl (33.0-37.0); MEAN PLATELET VOLUME 9.2 fl (9.6-12.3); MONO # 0.3 10*3/uL (0.1-1.0); NEUT # 4.3 10*3/uL (2.3-7.9); NEUT % 53.6 % (47.0-73.0); PLATELET COUNT AUTOMATED 371 10*3/uL (130-400); RED BLOOD COUNT 4.46 10*6/uL (4.10-5.10); RED CELL DISTRI WIDTH 14.7 % (0-14.5); WHITE BLOOD COUNT 7.9 10*3/uL (4.8-10.8)
[2017-05-26 22:12] LABS: ACT PARTIAL THROMBO TIME 27.6 SECONDS (20.8-31.5)
[2017-05-26 22:16] LABS: ACETAMINOPHEN (TYLENOL) < 2.0 ug/ml (10-30)
[2017-05-26 22:18] LABS: ALBUMIN 3.2 gm/dl (3.1-4.5); ALKALINE PHOSPHATASE 122 U/L (45-117); BUN 11 mg/dl (7-24); CHLORIDE 103 mmol/L (98-107); CREATININE 0.75 mg/dL (0.55-1.02); POTASSIUM 3.6 mmol/L (3.5-5.1); SGOT/AST 13 IU/L (3-35); SGPT/ALT 16 U/L (12-78); SODIUM 141 mmol/L (136-145); TOTAL PROTEIN 6.7 gm/dL (6.4-8.2)
[2017-05-26 22:20] LABS: TROPONIN I < 0.015 ng/ml (<0.045)
[2017-05-26 22:30] VITALS: BP 93/57
[2017-05-26 23:00] VITALS: BP 76/48; BP 82/60
[2017-05-26] MEDS ORDERED: HYDROXYZINE PAM50 MG PO (23:57)
[2017-05-27] VITALS (39 sets, daily range): BP systolic 70–139; BP diastolic 41–90
[2017-05-27 04:01] LABS: BASO # 0.1 10*3/uL (0.0-0.1); BASO % 1.4 % (0.0-1.0); EOS # 0.2 10*3/uL (0.0-0.4); EOS % 2.8 % (1.0-4.0); HEMATOCRIT 35.2 % (37.0-47.0); HEMOGLOBIN 11.6 g/dl (12.0-16.0); LYMPH # 3.5 10*3/uL (1.3-4.4); LYMPH % 43.7 % (27.0-41.0); MEAN CELL VOLUME 89.8 fl (81.0-99.0); MEAN CORPUSCULAR HGB 29.6 pg (27.0-31.0); MEAN PLATELET VOLUME 9.3 fl (9.6-12.3); MONO # 0.4 10*3/uL (0.1-1.0); MONO % 5.3 % (3.0-9.0); NEUT # 3.7 10*3/uL (2.3-7.9); NEUT % 46.3 % (47.0-73.0); PLATELET COUNT AUTOMATED 320 10*3/uL (130-400); RED BLOOD COUNT 3.92 10*6/uL (4.10-5.10)
[2017-05-27 04:23] LABS: ALBUMIN 2.6 gm/dl (3.1-4.5); ALKALINE PHOSPHATASE 132 U/L (45-117); BUN 13 mg/dl (7-24); CHLORIDE 108 mmol/L (98-107); CHOLESTEROL 128 mg/dL (<200); CREATININE 0.75 mg/dL (0.55-1.02); HDL CHOLESTEROL 34 mg/dl (40-60); LDL CHOLESTEROL 75 mg/dL (9-159); PHOSPHOROUS 3.9 mg/dL (2.5-4.9); SGOT/AST 78 IU/L (3-35); SGPT/ALT 36 U/L (12-78); SODIUM 142 mmol/L (136-145); TOTAL PROTEIN 5.5 gm/dL (6.4-8.2); TRIGLYCERIDES 95 mg/dl (<150); VLDL CHOLESTEROL 19 mg/dL (6-40)
[2017-05-27 06:42] LABS: URINE AMPHETAMINES < 1000 (1000ng/ml); URINE BARBITURATES < 200 (200ng/ml); URINE BENZODIAZEPINES > 200 (200ng/ml); URINE COCAINE < 300 (300ng/ml); URINE METHADONE < 300 (300ng/ml); URINE OPIATES > 300 (300ng/ml)
[2017-05-27 06:44] LABS: URINE CANNABINOIDS (THC) > 50 (50ng/ml)
[2017-05-27 06:45] LABS: URINE PHENCYCLIDINE < 25 (25ng/ml)
[2017-05-27 07:40] LABS: VITAMIN D, 25-HYDROXY 13.3 ng/mL (30-100)
[2017-05-28 00:57] VITALS: BP 122/70; BP 159/96
[2017-05-28 04:00] VITALS: BP 130/88
[2017-05-28 05:25] LABS: ALBUMIN 2.6 gm/dl (3.1-4.5); ALKALINE PHOSPHATASE 115 U/L (45-117); BUN 11 mg/dl (7-24); CHLORIDE 113 mmol/L (98-107); PHOSPHOROUS 4.2 mg/dL (2.5-4.9); POTASSIUM 4.2 mmol/L (3.5-5.1); SGOT/AST 38 IU/L (3-35); SGPT/ALT 37 U/L (12-78); SODIUM 143 mmol/L (136-145); TOTAL PROTEIN 5.5 gm/dL (6.4-8.2)
[2017-05-28 05:53] LABS: BASO # 0.1 10*3/uL (0.0-0.1); BASO % 1.1 % (0.0-1.0); EOS # 0.2 10*3/uL (0.0-0.4); EOS % 2.8 % (1.0-4.0); HEMOGLOBIN 11.6 g/dl (12.0-16.0); LYMPH # 2.7 10*3/uL (1.3-4.4); MEAN CELL VOLUME 91.6 fl (81.0-99.0); MEAN CORPUSCULAR HGB 28.7 pg (27.0-31.0); MEAN CORPUSCULAR HGB CONC 31.4 g/dl (33.0-37.0); MEAN PLATELET VOLUME 9.6 fl (9.6-12.3); MONO # 0.5 10*3/uL (0.1-1.0); NEUT # 3.1 10*3/uL (2.3-7.9); NEUT % 46.9 % (47.0-73.0); PLATELET COUNT AUTOMATED 302 10*3/uL (130-400); RED BLOOD COUNT 4.04 10*6/uL (4.10-5.10); RED CELL DISTRI WIDTH 15.1 % (0-14.5); WHITE BLOOD COUNT 6.5 10*3/uL (4.8-10.8)
[2017-05-28 08:00] VITALS: BP 132/85
[2017-05-28] MEDS ORDERED: Oscal,Oyster S500 MG PO (10:35)
== END 2017-05-28 10:53 | disposition home or self-care (01) | DRG 917 ==
LOC: ED 21:32 → ICCU 22:24 → EDHOLD 22:24 → ICCU 22:33
PROVIDERS: Emergency Medicine Emergency Medical Services; Hospitalist; Internal Medicine
DX: T43.212A Poisoning by selective serotonin and norepinephrine reuptake inhibitors, intentional self-harm, initial encounter (principal); E43 Unspecified severe protein-calorie malnutrition; R45.851 Suicidal ideations; I95.2 Hypotension due to drugs; C50.911 Malignant neoplasm of unspecified site of right female breast; F33.9 Major depressive disorder, recurrent, unspecified; Z68.1 Body mass index [BMI] 19.9 or less, adult; C50.912 Malignant neoplasm of unspecified site of left female breast; K21.9 Gastro-esophageal reflux disease without esophagitis; G62.9 Polyneuropathy, unspecified; F41.1 Generalized anxiety disorder; J44.9 Chronic obstructive pulmonary disease, unspecified; M54.16 Radiculopathy, lumbar region; G47.00 Insomnia, unspecified; R73.9 Hyperglycemia, unspecified; E83.41 Hypermagnesemia; T42.8X1A Poisoning by antiparkinsonism drugs and other central muscle-tone depressants, accidental (unintentional), initial encounter; T43.211A Poisoning by selective serotonin and norepinephrine reuptake inhibitors, accidental (unintentional), initial encounter; R74.8 Abnormal levels of other serum enzymes; E83.51 Hypocalcemia; F12.10 Cannabis abuse, uncomplicated; F14.10 Cocaine abuse, uncomplicated; F17.210 Nicotine dependence, cigarettes, uncomplicated; F11.10 Opioid abuse, uncomplicated; Z79.899 Other long term (current) drug therapy; Z86.718 Personal history of other venous thrombosis and embolism; Z71.6 Tobacco abuse counseling; Z90.13 Acquired absence of bilateral breasts and nipples; Y92.89 Other specified places as the place of occurrence of the external cause; Z90.49 Acquired absence of other specified parts of digestive tract; Z90.710 Acquired absence of both cervix and uterus; Z80.3 Family history of malignant neoplasm of breast; Z82.0 Family history of epilepsy and other diseases of the nervous system; Z82.49 Family history of ischemic heart disease and other diseases of the circulatory system; Z88.8 Allergy status to other drugs, medicaments and biological substances; Z83.49 Family history of other endocrine, nutritional and metabolic diseases

== ENCOUNTER → 2017-09-06 | Outpatient (CLI) | payer MEDICARE, MEDICAID ==
[~2017-09-06] MED LIST changes: +HYDROXYZINE PAM50 MG PO; +Oscal,Oyster S500 MG PO
== END | disposition home or self-care (01) ==
LOC: MRI 08-23 10:00
DX: M50.23 Other cervical disc displacement, cervicothoracic region (principal); M51.26 Other intervertebral disc displacement, lumbar region

== ENCOUNTER → 2018-10-27 | Outpatient (CLI) | payer OTHER | END | disposition home or self-care (01) | LOC: LAB 17:25 | DX: N39.0 Urinary tract infection, site not specified (principal); E79.8 Other disorders of purine and pyrimidine metabolism ==

== ENCOUNTER 2018-12-25 13:58 | Emergency (ER) | payer OTHER ==
[~2018-12-25] VITALS: Ht 170.1 cm; Wt 68.0 kg
[2018-12-25 14:36] LABS: BILIRUBIN NEGATIVE (NEGATIVE); BLOOD NEGATIVE (NEGATIVE); CLARITY CLEAR (CLEAR); COLOR YELLOW (YELLOW); GLUCOSE NEGATIVE (NEGATIVE); KETONE NEGATIVE (NEGATIVE); LEUKO ESTERASE TRACE (NEGATIVE); NITRITE NEGATIVE (NEGATIVE); PH 6.5 (5.0-9.0); SPECIFIC GRAVITY <= 1.005 (1.005-1.030); UROBILINOGEN 0.2 E.U./dl (0.2-1.0)
[2018-12-25 14:44] LABS: BASO # 0.1 10*3/uL (0.0-0.1); BASO % 1.3 % (0.0-1.0); EOS # 0.2 10*3/uL (0.0-0.4); EOS % 1.8 % (1.0-4.0); HEMATOCRIT 38.6 % (37.0-47.0); HEMOGLOBIN 12.2 g/dl (12.0-16.0); LYMPH # 3.1 10*3/uL (1.3-4.4); LYMPH % 33.5 % (27.0-41.0); MEAN CELL VOLUME 94.8 fl (81.0-99.0); MEAN CORPUSCULAR HGB CONC 31.6 g/dl (33.0-37.0); MEAN PLATELET VOLUME 10.3 fl (9.6-12.3); MONO # 0.4 10*3/uL (0.1-1.0); MONO % 3.9 % (3.0-9.0); NEUT # 5.5 10*3/uL (2.3-7.9); NEUT % 59.4 % (47.0-73.0); PLATELET COUNT AUTOMATED 238 10*3/uL (130-400); RED BLOOD COUNT 4.07 10*6/uL (4.10-5.10); RED CELL DISTRI WIDTH 17.1 % (0-14.5); WHITE BLOOD COUNT 9.3 10*3/uL (4.8-10.8)
[2018-12-25 14:50] LABS: BACTERIA 2+
[2018-12-25 14:56] LABS: ACT PARTIAL THROMBO TIME 25.1 SECONDS (20.0-32.1)
[2018-12-25 15:00] LABS: ALBUMIN 3.6 gm/dl (3.1-4.5); ALKALINE PHOSPHATASE 70 U/L (45-117); BUN 12 mg/dl (7-24); CHLORIDE 111 mmol/L (98-107); CREATININE 0.98 mg/dL (0.55-1.02); LIPASE 121 U/L (73-393); POTASSIUM 3.5 mmol/L (3.5-5.1); SGOT/AST 14 IU/L (3-35); SGPT/ALT 16 U/L (12-78); SODIUM 141 mmol/L (136-145); TOTAL PROTEIN 7.1 gm/dL (6.4-8.2)
[2018-12-25 15:02] LABS: TROPONIN I < 0.015 ng/ml (<0.045)
[2018-12-25] MEDS ORDERED: KLONOPIN0.5 MG PO (18:32)
== END 2018-12-25 18:28 | disposition home or self-care (01) ==
LOC: ED 13:58
PROVIDERS: Emergency Medicine
DX: K59.00 Constipation, unspecified (principal); R19.7 Diarrhea, unspecified; F41.9 Anxiety disorder, unspecified; R61 Generalized hyperhidrosis; J44.9 Chronic obstructive pulmonary disease, unspecified; K21.9 Gastro-esophageal reflux disease without esophagitis; G62.9 Polyneuropathy, unspecified; F17.200 Nicotine dependence, unspecified, uncomplicated; Z79.899 Other long term (current) drug therapy; Z88.6 Allergy status to analgesic agent; Z88.8 Allergy status to other drugs, medicaments and biological substances; Z90.49 Acquired absence of other specified parts of digestive tract

== ENCOUNTER 2019-02-14 14:04 | Emergency (ER) | payer OTHER ==
[~2019-02-14] VITALS: Ht 170.1 cm; Wt 71.2 kg
[2019-02-14 14:51] LABS: BILIRUBIN NEGATIVE (NEGATIVE); BLOOD NEGATIVE (NEGATIVE); CLARITY CLEAR (CLEAR); COLOR YELLOW (YELLOW); GLUCOSE NEGATIVE (NEGATIVE); KETONE NEGATIVE (NEGATIVE); LEUKO ESTERASE NEGATIVE (NEGATIVE); NITRITE NEGATIVE (NEGATIVE); SPECIFIC GRAVITY <= 1.005 (1.005-1.030); UROBILINOGEN 0.2 E.U./dl (0.2-1.0)
[2019-02-14 14:56] LABS: URINE AMPHETAMINES < 1000 (1000ng/ml); URINE BARBITURATES < 200 (200ng/ml); URINE BENZODIAZEPINES < 200 (200ng/ml); URINE CANNABINOIDS (THC) > 50 (50ng/ml); URINE COCAINE < 300 (300ng/ml); URINE METHADONE < 300 (300ng/ml); URINE OPIATES < 300 (300ng/ml)
[2019-02-14 15:00] LABS: URINE PHENCYCLIDINE < 25 (25ng/ml)
[2019-02-14 15:04] LABS: BACTERIA TRACE; WBC 0-2 wbc/hpf (0-5)
== END 2019-02-14 15:41 | disposition left against medical advice (07) ==
LOC: ED 14:04
PROVIDERS: Nurse Practitioner Family
DX: M54.9 Dorsalgia, unspecified (principal); G89.29 Other chronic pain; J44.9 Chronic obstructive pulmonary disease, unspecified; K21.9 Gastro-esophageal reflux disease without esophagitis; G62.9 Polyneuropathy, unspecified; F17.200 Nicotine dependence, unspecified, uncomplicated; Z88.8 Allergy status to other drugs, medicaments and biological substances; Z88.1 Allergy status to other antibiotic agents; Z79.899 Other long term (current) drug therapy; Z90.710 Acquired absence of both cervix and uterus; Z90.49 Acquired absence of other specified parts of digestive tract; X50.1XXA Overexertion from prolonged static or awkward postures, initial encounter; Y93.89 Activity, other specified; Y92.89 Other specified places as the place of occurrence of the external cause; Y99.8 Other external cause status

== ENCOUNTER → 2019-02-14 | Outpatient (CLI) | payer OTHER | END | disposition home or self-care (01) | LOC: RAD 13:21 | DX: M47.816 Spondylosis without myelopathy or radiculopathy, lumbar region (principal); M47.814 Spondylosis without myelopathy or radiculopathy, thoracic region ==

== ENCOUNTER → 2019-06-19 | Outpatient (CLI) | payer OTHER ==
[2019-06-19 17:00] LABS: BASO # 0.1 10*3/uL (0.0-0.1); BASO % 0.7 % (0.0-1.0); EOS # 0.1 10*3/uL (0.0-0.4); EOS % 1.1 % (1.0-4.0); HEMATOCRIT 42.4 % (37.0-47.0); LYMPH # 3.2 10*3/uL (1.3-4.4); LYMPH % 34.2 % (27.0-41.0); MEAN CELL VOLUME 94.4 fl (81.0-99.0); MEAN CORPUSCULAR HGB 29.6 pg (27.0-31.0); MEAN CORPUSCULAR HGB CONC 31.4 g/dl (33.0-37.0); MEAN PLATELET VOLUME 11.1 fl (9.6-12.3); MONO # 0.4 10*3/uL (0.1-1.0); MONO % 4.5 % (3.0-9.0); NEUT # 5.6 10*3/uL (2.3-7.9); NEUT % 59.3 % (47.0-73.0); PLATELET COUNT AUTOMATED 272 10*3/uL (130-400); RED BLOOD COUNT 4.49 10*6/uL (4.10-5.10); RED CELL DISTRI WIDTH 16.2 % (0-14.5); WHITE BLOOD COUNT 9.5 10*3/uL (4.8-10.8)
[2019-06-19 17:19] LABS: ALBUMIN 3.9 gm/dl (3.1-4.5); BUN 8 mg/dl (7-24); CHLORIDE 108 mmol/L (98-107); CREATININE 0.99 mg/dL (0.55-1.02); IRON 89 ug/dL (50-170); POTASSIUM 3.1 mmol/L (3.5-5.1); SGOT/AST 15 IU/L (3-35); SGPT/ALT 19 U/L (12-78); SODIUM 142 mmol/L (136-145); TOTAL IRON BINDING CAPACITY 386 ug/dl (250-450)
[2019-06-19 17:22] LABS: ALKALINE PHOSPHATASE 79 U/L (45-117); TOTAL PROTEIN 7.2 gm/dL (6.4-8.2)
[2019-06-19 17:27] LABS: CEA 3.2 ng/mL
[2019-06-19 18:21] LABS: FERRITIN 23.3 ng/mL (10.0-291.0)
[2019-06-20 07:07] LABS: CA 27.29 15.3 U/mL (0.0-38.6)
== END | disposition home or self-care (01) ==
LOC: LAB 15:57
PROVIDERS: Internal Medicine
DX: Z51.81 Encounter for therapeutic drug level monitoring (principal); C50.912 Malignant neoplasm of unspecified site of left female breast; D64.9 Anemia, unspecified

== ENCOUNTER 2019-07-15 21:42 | Emergency (ER) | payer OTHER ==
[~2019-07-15] VITALS: Ht 170.1 cm; Wt 54.4 kg
[2019-07-15 22:42] LABS: BASO # 0.1 10*3/uL (0.0-0.1); BASO % 1.1 % (0.0-1.0); EOS # 0.1 10*3/uL (0.0-0.4); EOS % 1.2 % (1.0-4.0); HEMATOCRIT 43.6 % (37.0-47.0); LYMPH # 2.7 10*3/uL (1.3-4.4); LYMPH % 37.2 % (27.0-41.0); MEAN CELL VOLUME 92.6 fl (81.0-99.0); MEAN CORPUSCULAR HGB 30.1 pg (27.0-31.0); MEAN CORPUSCULAR HGB CONC 32.6 g/dl (33.0-37.0); MONO # 0.5 10*3/uL (0.1-1.0); MONO % 6.6 % (3.0-9.0); NEUT # 3.9 10*3/uL (2.3-7.9); NEUT % 53.6 % (47.0-73.0); PLATELET COUNT AUTOMATED 290 10*3/uL (130-400); RED BLOOD COUNT 4.71 10*6/uL (4.10-5.10); RED CELL DISTRI WIDTH 16.5 % (0-14.5); WHITE BLOOD COUNT 7.3 10*3/uL (4.8-10.8)
[2019-07-15 22:54] LABS: INTERNATIONAL NORM RATIO 1.1 (2.0-3.5)
[2019-07-15 23:00] LABS: ALBUMIN 4.5 gm/dl (3.1-4.5); ALKALINE PHOSPHATASE 91 U/L (45-117); BUN 11 mg/dl (7-24); CHLORIDE 106 mmol/L (98-107); CREATININE 0.93 mg/dL (0.55-1.02); LIPASE 37 U/L (73-393); POTASSIUM 3.5 mmol/L (3.5-5.1); SGOT/AST 18 IU/L (3-35); SGPT/ALT 16 U/L (12-78); SODIUM 139 mmol/L (136-145); TOTAL PROTEIN 8.2 gm/dL (6.4-8.2)
[2019-07-15 23:00] LABS: BILIRUBIN NEGATIVE (NEGATIVE); BLOOD NEGATIVE (NEGATIVE); CLARITY SL CLOUDY (CLEAR); COLOR YELLOW (YELLOW); GLUCOSE NEGATIVE (NEGATIVE); KETONE 2+ (NEGATIVE); LEUKO ESTERASE NEGATIVE (NEGATIVE); NITRITE NEGATIVE (NEGATIVE); UROBILINOGEN 0.2 E.U./dl (0.2-1.0)
[2019-07-15 23:01] LABS: BACTERIA 1+; EPITHELIAL CELLS 41-50; URINE AMPHETAMINES > 1000 (1000ng/ml); URINE BARBITURATES < 200 (200ng/ml); URINE BENZODIAZEPINES > 200 (200ng/ml); URINE CANNABINOIDS (THC) > 50 (50ng/ml); URINE COCAINE < 300 (300ng/ml); URINE METHADONE < 300 (300ng/ml); URINE OPIATES > 300 (300ng/ml)
[2019-07-15 23:02] LABS: TROPONIN I < 0.015 ng/ml (<0.045)
[2019-07-15 23:02] LABS: URINE PHENCYCLIDINE < 25 (25ng/ml)
[2019-07-15] MEDS ORDERED: ZITHROMAX250 MG PO (23:25)
== END 2019-07-15 23:49 | disposition home or self-care (01) ==
LOC: ED 21:42
PROVIDERS: Physician Assistant
DX: J18.9 Pneumonia, unspecified organism (principal); F41.9 Anxiety disorder, unspecified; R07.89 Other chest pain; M54.5 Low back pain; F19.10 Other psychoactive substance abuse, uncomplicated; Z88.8 Allergy status to other drugs, medicaments and biological substances; Z79.899 Other long term (current) drug therapy; Z90.49 Acquired absence of other specified parts of digestive tract

== ENCOUNTER 2019-07-16 18:54 | Emergency (ER) | payer OTHER ==
[~2019-07-16 18:54] MED LIST changes: +ZITHROMAX250 MG PO
[2019-07-16 20:06] LABS: BASO # 0.1 10*3/uL (0.0-0.1); BASO % 0.8 % (0.0-1.0); EOS % 0.5 % (1.0-4.0); HEMATOCRIT 40.3 % (37.0-47.0); LYMPH # 2.2 10*3/uL (1.3-4.4); LYMPH % 29.2 % (27.0-41.0); MEAN CELL VOLUME 91.8 fl (81.0-99.0); MEAN CORPUSCULAR HGB 30.3 pg (27.0-31.0); MEAN PLATELET VOLUME 9.9 fl (9.6-12.3); MONO # 0.6 10*3/uL (0.1-1.0); MONO % 7.7 % (3.0-9.0); NEUT # 4.6 10*3/uL (2.3-7.9); NEUT % 61.7 % (47.0-73.0); PLATELET COUNT AUTOMATED 273 10*3/uL (130-400); RED BLOOD COUNT 4.39 10*6/uL (4.10-5.10); RED CELL DISTRI WIDTH 16.4 % (0-14.5); WHITE BLOOD COUNT 7.4 10*3/uL (4.8-10.8)
[2019-07-16 20:15] LABS: INTERNATIONAL NORM RATIO 1.1 (2.0-3.5)
[2019-07-16 20:20] LABS: COLOR YELLOW (YELLOW)
[2019-07-16 20:21] LABS: BILIRUBIN 1+ (NEGATIVE); BLOOD NEGATIVE (NEGATIVE); CLARITY CLOUDY (CLEAR); GLUCOSE NEGATIVE (NEGATIVE); KETONE 2+ (NEGATIVE); LEUKO ESTERASE NEGATIVE (NEGATIVE); NITRITE NEGATIVE (NEGATIVE); UROBILINOGEN 0.2 E.U./dl (0.2-1.0)
[2019-07-16 20:23] LABS: BACTERIA 3+; EPITHELIAL CELLS TNTC; MUCOUS 3+
[2019-07-16 20:24] LABS: ALBUMIN 4.1 gm/dl (3.1-4.5); ALKALINE PHOSPHATASE 86 U/L (45-117); BUN 20 mg/dl (7-24); CHLORIDE 107 mmol/L (98-107); CREATININE 0.97 mg/dL (0.55-1.02); POTASSIUM 3.3 mmol/L (3.5-5.1); SGOT/AST 24 IU/L (3-35); SGPT/ALT 18 U/L (12-78); SODIUM 138 mmol/L (136-145); TOTAL PROTEIN 7.3 gm/dL (6.4-8.2)
[2019-07-16 20:28] LABS: TROPONIN I < 0.015 ng/ml (<0.045)
== END 2019-07-17 10:00 | disposition left against medical advice (07) ==
LOC: ED 18:54
PROVIDERS: Emergency Medicine
DX: F19.10 Other psychoactive substance abuse, uncomplicated (principal); F41.9 Anxiety disorder, unspecified; F32.9 Major depressive disorder, single episode, unspecified; K21.9 Gastro-esophageal reflux disease without esophagitis; J44.9 Chronic obstructive pulmonary disease, unspecified; F17.200 Nicotine dependence, unspecified, uncomplicated; Z88.8 Allergy status to other drugs, medicaments and biological substances; Z79.899 Other long term (current) drug therapy; Z90.49 Acquired absence of other specified parts of digestive tract

== ENCOUNTER 2019-10-14 11:55 | Emergency (ER) | payer OTHER ==
[~2019-10-14] VITALS: Ht 170.1 cm; Wt 61.2 kg
[2019-10-14 12:30] LABS: CLARITY SL CLOUDY (CLEAR); COLOR YELLOW (YELLOW)
[2019-10-14 12:35] LABS: BILIRUBIN NEGATIVE (NEGATIVE); BLOOD NEGATIVE (NEGATIVE); GLUCOSE NEGATIVE (NEGATIVE); KETONE TRACE (NEGATIVE); LEUKO ESTERASE 1+ (NEGATIVE); NITRITE NEGATIVE (NEGATIVE); PH 5.5 (5.0-9.0); SPECIFIC GRAVITY 1.025 (1.005-1.030)
[2019-10-14 12:40] LABS: BASO # 0.1 10*3/uL (0.0-0.1); BASO % 1.2 % (0.0-1.0); EOS # 0.3 10*3/uL (0.0-0.4); EOS % 3.7 % (1.0-4.0); HEMATOCRIT 43.2 % (37.0-47.0); LYMPH # 2.7 10*3/uL (1.3-4.4); LYMPH % 35.1 % (27.0-41.0); MEAN CELL VOLUME 91.7 fl (81.0-99.0); MEAN CORPUSCULAR HGB 29.3 pg (27.0-31.0); MEAN CORPUSCULAR HGB CONC 31.9 g/dl (33.0-37.0); MEAN PLATELET VOLUME 10.6 fl (9.6-12.3); MONO # 0.7 10*3/uL (0.1-1.0); MONO % 9.4 % (3.0-9.0); NEUT # 3.9 10*3/uL (2.3-7.9); NEUT % 50.6 % (47.0-73.0); PLATELET COUNT AUTOMATED 299 10*3/uL (130-400); RED BLOOD COUNT 4.71 10*6/uL (4.10-5.10); RED CELL DISTRI WIDTH 15.9 % (0-14.5); WHITE BLOOD COUNT 7.7 10*3/uL (4.8-10.8)
[2019-10-14 12:50] LABS: BACTERIA 2+
[2019-10-14 12:54] LABS: ALBUMIN 4.2 gm/dl (3.1-4.5); CREATININE 1.19 mg/dL (0.55-1.02); POTASSIUM 3.2 mmol/L (3.5-5.1); TOTAL PROTEIN 8.6 gm/dL (6.4-8.2)
== END 2019-10-14 13:16 | disposition home or self-care (01) ==
LOC: ED 11:55
PROVIDERS: Emergency Medicine
DX: R19.7 Diarrhea, unspecified (principal); E86.0 Dehydration; F43.20 Adjustment disorder, unspecified; M54.5 Low back pain; J44.9 Chronic obstructive pulmonary disease, unspecified; K21.9 Gastro-esophageal reflux disease without esophagitis; F41.9 Anxiety disorder, unspecified; F32.9 Major depressive disorder, single episode, unspecified; Z79.899 Other long term (current) drug therapy

== ENCOUNTER 2019-10-16 06:44 | Inpatient (IN) | payer OTHER ==
[~2019-10-16] VITALS: Ht 170.2 cm; Wt 62.2 kg
[2019-10-16 06:47] VITALS: BP 112/85
[2019-10-16 07:49] LABS: BASO # 0.1 10*3/uL (0.0-0.1); EOS % 0.7 % (1.0-4.0); HEMATOCRIT 38.4 % (37.0-47.0); LYMPH # 2.1 10*3/uL (1.3-4.4); LYMPH % 35.4 % (27.0-41.0); MEAN CELL VOLUME 91.6 fl (81.0-99.0); MEAN CORPUSCULAR HGB 29.4 pg (27.0-31.0); MEAN PLATELET VOLUME 10.9 fl (9.6-12.3); MONO # 0.4 10*3/uL (0.1-1.0); MONO % 7.4 % (3.0-9.0); NEUT # 3.3 10*3/uL (2.3-7.9); NEUT % 55.3 % (47.0-73.0); PLATELET COUNT AUTOMATED 258 10*3/uL (130-400); RED BLOOD COUNT 4.19 10*6/uL (4.10-5.10); RED CELL DISTRI WIDTH 15.7 % (0-14.5); WHITE BLOOD COUNT 5.9 10*3/uL (4.8-10.8)
[2019-10-16 08:02] LABS: ACT PARTIAL THROMBO TIME 28.9 SECONDS (20.0-32.1)
[2019-10-16 08:04] LABS: ALBUMIN 4.2 gm/dl (3.1-4.5); ALKALINE PHOSPHATASE 72 U/L (45-117); BUN 10 mg/dl (7-24); CHLORIDE 111 mmol/L (98-107); CREATININE 1.01 mg/dL (0.55-1.02); LIPASE 80 U/L (73-393); SGOT/AST 20 IU/L (3-35); SGPT/ALT 16 U/L (12-78); SODIUM 142 mmol/L (136-145); TOTAL PROTEIN 7.7 gm/dL (6.4-8.2)
[2019-10-16 08:12] LABS: ACETAMINOPHEN (TYLENOL) < 5.0 ug/ml (10-30); ETHYL ALCOHOL < 3.0 mg/dl (<3); TROPONIN I < 0.015 ng/ml (<0.045)
[2019-10-16 08:45] LABS: CLARITY SL CLOUDY (CLEAR); COLOR YELLOW (YELLOW)
[2019-10-16 08:46] LABS: BILIRUBIN NEGATIVE (NEGATIVE); GLUCOSE NEGATIVE (NEGATIVE); KETONE NEGATIVE (NEGATIVE); SPECIFIC GRAVITY 1.025 (1.005-1.030); URINE AMPHETAMINES > 1000 (1000ng/ml); URINE BARBITURATES < 200 (200ng/ml); URINE BENZODIAZEPINES > 200 (200ng/ml); URINE CANNABINOIDS (THC) > 50 (50ng/ml); URINE COCAINE < 300 (300ng/ml); URINE METHADONE < 300 (300ng/ml); URINE OPIATES > 300 (300ng/ml)
[2019-10-16 08:47] LABS: BLOOD NEGATIVE (NEGATIVE); LEUKO ESTERASE 1+ (NEGATIVE); NITRITE NEGATIVE (NEGATIVE); UROBILINOGEN 0.2 E.U./dl (0.2-1.0)
[2019-10-16 08:49] LABS: BACTERIA 2+; MUCOUS 2+; YEAST 1+
[2019-10-16 08:51] LABS: URINE PHENCYCLIDINE < 25 (25ng/ml)
[2019-10-16 11:06] VITALS: BP 149/94
[2019-10-16] MEDS ORDERED: SEROQUEL300 MG PO (13:56)
[2019-10-16] MEDS ORDERED: IBU800 MG PO (13:56)
[2019-10-16] MEDS ORDERED: CATAPRES PO (13:56)
[2019-10-16] MEDS ORDERED: SINGULAIR10 M1 PO (13:57)
[2019-10-16] MEDS ORDERED: PROAIR HFA8.5 GM INH (13:58)
[2019-10-16] MEDS ORDERED: NEURONTIN600 MG PO (13:58)
[2019-10-16] MEDS ORDERED: PROTONIX40 MG PO (13:59)
[2019-10-16 16:00] VITALS: BP 118/66
[2019-10-16 20:00] VITALS: BP 132/76
[2019-10-16] MEDS ORDERED: CLONAZEPAM1 MG PO (23:36)
[2019-10-17] VITALS: BP 116/79
[2019-10-17 08:00] VITALS: BP 96/50
[2019-10-17 09:21] LABS: BASO # 0.1 10*3/uL (0.0-0.1); BASO % 1.2 % (0.0-1.0); EOS # 0.2 10*3/uL (0.0-0.4); EOS % 3.8 % (1.0-4.0); HEMATOCRIT 36.3 % (37.0-47.0); LYMPH # 2.6 10*3/uL (1.3-4.4); LYMPH % 52.1 % (27.0-41.0); MEAN CELL VOLUME 94.3 fl (81.0-99.0); MEAN CORPUSCULAR HGB 29.4 pg (27.0-31.0); MEAN CORPUSCULAR HGB CONC 31.1 g/dl (33.0-37.0); MEAN PLATELET VOLUME 11.1 fl (9.6-12.3); MONO # 0.4 10*3/uL (0.1-1.0); MONO % 8.2 % (3.0-9.0); NEUT # 1.7 10*3/uL (2.3-7.9); NEUT % 34.5 % (47.0-73.0); PLATELET COUNT AUTOMATED 202 10*3/uL (130-400); RED BLOOD COUNT 3.85 10*6/uL (4.10-5.10)
[2019-10-17 09:38] LABS: ALBUMIN 3.2 gm/dl (3.1-4.5); ALKALINE PHOSPHATASE 56 U/L (45-117); BUN 7 mg/dl (7-24); CHLORIDE 119 mmol/L (98-107); CREATININE 0.83 mg/dL (0.55-1.02); SGOT/AST 15 IU/L (3-35); SGPT/ALT 16 U/L (12-78); TOTAL PROTEIN 6.2 gm/dL (6.4-8.2)
[2019-10-17 09:43] LABS: SODIUM 144 mmol/L (136-145)
[2019-10-17 12:00] VITALS: BP 122/82
[2019-10-17 16:00] VITALS: BP 143/85
[2019-10-18 05:00] VITALS: BP 106/64
[2019-10-18 08:00] VITALS: BP 118/77
[2019-10-18 12:00] VITALS: BP 124/78
== END 2019-10-18 14:07 | disposition home or self-care (01) | DRG 689 ==
LOC: ED 06:44 → 4E 10:28 → EDHOLD 10:28 → 4E 10:28
PROVIDERS: Emergency Medicine; Physical Therapist; ADMIT Internal Medicine; ATTEND Internal Medicine
DX: N30.00 Acute cystitis without hematuria (principal); G93.41 Metabolic encephalopathy; F33.9 Major depressive disorder, recurrent, unspecified; F15.93 Other stimulant use, unspecified with withdrawal; F41.9 Anxiety disorder, unspecified; J44.9 Chronic obstructive pulmonary disease, unspecified; F41.1 Generalized anxiety disorder; K21.9 Gastro-esophageal reflux disease without esophagitis; G62.9 Polyneuropathy, unspecified; F19.10 Other psychoactive substance abuse, uncomplicated; F13.10 Sedative, hypnotic or anxiolytic abuse, uncomplicated; F11.90 Opioid use, unspecified, uncomplicated; F12.10 Cannabis abuse, uncomplicated; E87.5 Hyperkalemia; E87.8 Other disorders of electrolyte and fluid balance, not elsewhere classified; E83.41 Hypermagnesemia; F29 Unspecified psychosis not due to a substance or known physiological condition; Z90.13 Acquired absence of bilateral breasts and nipples; Z90.49 Acquired absence of other specified parts of digestive tract; Z90.710 Acquired absence of both cervix and uterus; Z85.41 Personal history of malignant neoplasm of cervix uteri; Z80.3 Family history of malignant neoplasm of breast; Z82.49 Family history of ischemic heart disease and other diseases of the circulatory system; Z09 Encounter for follow-up examination after completed treatment for conditions other than malignant neoplasm; Z86.718 Personal history of other venous thrombosis and embolism; Z71.6 Tobacco abuse counseling; Z79.899 Other long term (current) drug therapy

== ENCOUNTER 2020-02-13 12:31 | Emergency (ER) | payer OTHER ==
[~2020-02-13] VITALS: Ht 170.1 cm; Wt 52.2 kg
[~2020-02-13 12:31] MED LIST changes: +CATAPRES PO; +IBU800 MG PO; +NEURONTIN600 MG PO; +PROAIR HFA8.5 GM INH; +PROTONIX40 MG PO; +SEROQUEL300 MG PO
[2020-02-13 12:58] LABS: BILIRUBIN Negative (Negative); BLOOD Negative (Negative); CLARITY Cloudy (Clear); COLOR Dark Yellow (Yellow); GLUCOSE Negative (Negative); KETONE 1+ (Negative); LEUKO ESTERASE Trace (Negative); NITRITE Negative (Negative); PH 5.5 (4.5-8.0); SPECIFIC GRAVITY 1.025 (1.001-1.030)
[2020-02-13 13:09] LABS: URINE AMPHETAMINES > 1000 (1000ng/ml); URINE BARBITURATES < 200 (200ng/ml); URINE BENZODIAZEPINES > 200 (200ng/ml); URINE CANNABINOIDS (THC) > 50 (50ng/ml); URINE COCAINE > 300 (300ng/ml); URINE METHADONE < 300 (300ng/ml); URINE OPIATES > 300 (300ng/ml)
[2020-02-13 13:12] LABS: URINE PHENCYCLIDINE < 25 (25ng/ml)
[2020-02-13 13:19] LABS: BACTERIA 3+
== END 2020-02-13 14:23 | disposition home or self-care (01) ==
LOC: ED 12:31
PROVIDERS: Internal Medicine
DX: F15.10 Other stimulant abuse, uncomplicated (principal); Z88.6 Allergy status to analgesic agent; Z88.8 Allergy status to other drugs, medicaments and biological substances; Z79.899 Other long term (current) drug therapy; Z87.891 Personal history of nicotine dependence

== ENCOUNTER 2020-02-14 03:33 | Emergency (ER) | payer OTHER ==
[~2020-02-14] VITALS: Ht 170.1 cm; Wt 52.2 kg
[2020-02-14 03:56] LABS: BASO # 0.1 10*3/uL (0.0-0.1); BASO % 0.9 % (0.0-1.0); EOS # 0.1 10*3/uL (0.0-0.4); HEMATOCRIT 38.5 % (37.0-47.0); LYMPH # 2.1 10*3/uL (1.3-4.4); LYMPH % 36.5 % (27.0-41.0); MEAN CELL VOLUME 90.4 fl (81.0-99.0); MEAN CORPUSCULAR HGB 28.9 pg (27.0-31.0); MEAN CORPUSCULAR HGB CONC 31.9 g/dl (33.0-37.0); MEAN PLATELET VOLUME 9.4 fl (9.6-12.3); MONO # 0.5 10*3/uL (0.1-1.0); MONO % 8.9 % (3.0-9.0); NEUT % 52.5 % (47.0-73.0); PLATELET COUNT AUTOMATED 261 10*3/uL (130-400); RED BLOOD COUNT 4.26 10*6/uL (4.10-5.10); WHITE BLOOD COUNT 5.7 10*3/uL (4.8-10.8)
[2020-02-14 04:06] LABS: BILIRUBIN Negative (Negative); BLOOD Negative (Negative); CLARITY Clear (Clear); COLOR Yellow (Yellow); GLUCOSE Negative (Negative); KETONE 1+ (Negative); LEUKO ESTERASE Trace (Negative); NITRITE Negative (Negative); PH 5.5 (4.5-8.0); SPECIFIC GRAVITY 1.025 (1.001-1.030)
[2020-02-14 04:11] LABS: ALKALINE PHOSPHATASE 65 U/L (45-117); BUN 17 mg/dl (7-24); CHLORIDE 106 mmol/L (98-107); CREATININE 1.23 mg/dL (0.55-1.02); POTASSIUM 3.5 mmol/L (3.5-5.1); SGOT/AST 29 IU/L (3-35); SGPT/ALT 19 U/L (12-78); SODIUM 139 mmol/L (136-145); TOTAL PROTEIN 7.6 gm/dL (6.4-8.2)
[2020-02-14 04:13] LABS: ACETAMINOPHEN (TYLENOL) < 5.0 ug/ml (10-30); ETHYL ALCOHOL < 3.0 mg/dl (<3)
[2020-02-14 04:14] LABS: URINE AMPHETAMINES > 1000 (1000ng/ml); URINE BARBITURATES < 200 (200ng/ml); URINE BENZODIAZEPINES > 200 (200ng/ml); URINE CANNABINOIDS (THC) > 50 (50ng/ml); URINE COCAINE > 300 (300ng/ml); URINE METHADONE < 300 (300ng/ml); URINE OPIATES > 300 (300ng/ml)
[2020-02-14 04:15] LABS: URINE PHENCYCLIDINE < 25 (25ng/ml)
[2020-02-14 04:16] LABS: BACTERIA 4+
[2020-02-14 04:17] LABS: MUCOUS TRACE
== END 2020-02-14 15:15 | disposition home health service (06) ==
LOC: ED 03:33
PROVIDERS: Emergency Medicine
DX: F19.10 Other psychoactive substance abuse, uncomplicated (principal); F31.9 Bipolar disorder, unspecified; F41.9 Anxiety disorder, unspecified; K21.9 Gastro-esophageal reflux disease without esophagitis; J44.9 Chronic obstructive pulmonary disease, unspecified; Z88.8 Allergy status to other drugs, medicaments and biological substances; Z79.899 Other long term (current) drug therapy

== ENCOUNTER → 2020-04-05 | Outpatient (CLI) | payer OTHER ==
[2020-04-05 16:42] LABS: BASO # 0.1 10*3/uL (0.0-0.1); BASO % 0.9 % (0.0-1.0); EOS # 0.2 10*3/uL (0.0-0.4); EOS % 1.9 % (1.0-4.0); HEMATOCRIT 41.3 % (37.0-47.0); LYMPH # 3.2 10*3/uL (1.3-4.4); LYMPH % 37.5 % (27.0-41.0); MEAN CELL VOLUME 90.2 fl (81.0-99.0); MEAN CORPUSCULAR HGB 28.8 pg (27.0-31.0); MONO # 0.3 10*3/uL (0.1-1.0); MONO % 3.7 % (3.0-9.0); NEUT # 4.8 10*3/uL (2.3-7.9); NEUT % 55.8 % (47.0-73.0); PLATELET COUNT AUTOMATED 360 10*3/uL (130-400); RED BLOOD COUNT 4.58 10*6/uL (4.10-5.10); RED CELL DISTRI WIDTH 15.8 % (0-14.5); WHITE BLOOD COUNT 8.5 10*3/uL (4.8-10.8)
[2020-04-05 16:59] LABS: CREATININE 1.16 mg/dL (0.55-1.02); POTASSIUM 3.7 mmol/L (3.5-5.1); TOTAL PROTEIN 7.5 gm/dL (6.4-8.2)
[2020-04-05 17:01] LABS: CEA 3.8 ng/mL
== END | disposition home or self-care (01) ==
LOC: LAB 15:55
PROVIDERS: ATTEND Internal Medicine
DX: C50.912 Malignant neoplasm of unspecified site of left female breast (principal); D64.9 Anemia, unspecified

== ENCOUNTER 2020-10-10 16:10 | Emergency (ER) | payer OTHER ==
[~2020-10-10] VITALS: Ht 170.1 cm; Wt 59.0 kg
[2020-10-10 16:50] LABS: BASO % 0.4 % (0.0-1.0); EOS % 0.1 % (1.0-4.0); HEMATOCRIT 42.5 % (37.0-47.0); LYMPH # 3.3 10*3/uL (1.3-4.4); LYMPH % 29.3 % (27.0-41.0); MEAN CELL VOLUME 83.3 fl (81.0-99.0); MEAN CORPUSCULAR HGB 26.7 pg (27.0-31.0); MEAN PLATELET VOLUME 9.5 fl (9.6-12.3); MONO # 0.7 10*3/uL (0.1-1.0); MONO % 6.2 % (3.0-9.0); NEUT # 7.2 10*3/uL (2.3-7.9); NEUT % 63.7 % (47.0-73.0); PLATELET COUNT AUTOMATED 296 10*3/uL (130-400); RED CELL DISTRI WIDTH 18.3 % (0-14.5); WHITE BLOOD COUNT 11.2 10*3/uL (4.8-10.8)
[2020-10-10 17:08] LABS: ALKALINE PHOSPHATASE 86 U/L (45-117); BUN 12 mg/dl (7-24); CHLORIDE 107 mmol/L (98-107); CREATININE 0.89 mg/dL (0.55-1.02); POTASSIUM 3.3 mmol/L (3.5-5.1); SGOT/AST 20 IU/L (3-35); SGPT/ALT 25 U/L (12-78); SODIUM 139 mmol/L (136-145); TOTAL PROTEIN 7.9 gm/dL (6.4-8.2); TROPONIN I < 0.015 ng/ml (<0.045)
[2020-10-10 23:03] LABS: BILIRUBIN Negative (Negative); BLOOD Negative (Negative); CLARITY Cloudy (Clear); COLOR Yellow (Yellow); GLUCOSE Negative (Negative); KETONE Trace (Negative); LEUKO ESTERASE 2+ (Negative); NITRITE Positive (Negative); SPECIFIC GRAVITY 1.015 (1.001-1.030)
[2020-10-10 23:08] LABS: BACTERIA 4+; EPITHELIAL CELLS 21-30; WBC 16-20 wbc/hpf (0-5)
[2020-10-10] MEDS ORDERED: CEPHALEXIN500 M1 PO (23:36)
== END 2020-10-10 23:45 | disposition home or self-care (01) ==
LOC: ED 16:10
PROVIDERS: Emergency Medicine; Internal Medicine
DX: R11.2 Nausea with vomiting, unspecified (principal); Z20.822 Contact with and (suspected) exposure to COVID-19; R51.9 Headache, unspecified; Z88.8 Allergy status to other drugs, medicaments and biological substances; Z88.6 Allergy status to analgesic agent; Z79.899 Other long term (current) drug therapy; Z87.891 Personal history of nicotine dependence

== ENCOUNTER 2020-11-19 14:43 | Emergency (ER) | payer OTHER ==
[~2020-11-19] VITALS: Ht 170.1 cm; Wt 71.7 kg
[~2020-11-19 14:43] MED LIST changes: +CEPHALEXIN500 M1 PO
[2020-11-19 15:20] LABS: BASO # 0.1 10*3/uL (0.0-0.1); BASO % 0.5 % (0.0-1.0); EOS % 0.1 % (1.0-4.0); HEMATOCRIT 40.3 % (37.0-47.0); LYMPH # 2.1 10*3/uL (1.3-4.4); LYMPH % 22.4 % (27.0-41.0); MEAN CORPUSCULAR HGB 26.7 pg (27.0-31.0); MEAN CORPUSCULAR HGB CONC 31.8 g/dl (33.0-37.0); MEAN PLATELET VOLUME 9.8 fl (9.6-12.3); MONO # 0.5 10*3/uL (0.1-1.0); MONO % 5.3 % (3.0-9.0); NEUT # 6.8 10*3/uL (2.3-7.9); NEUT % 71.3 % (47.0-73.0); PLATELET COUNT AUTOMATED 273 10*3/uL (130-400); RED CELL DISTRI WIDTH 18.9 % (0-14.5); WHITE BLOOD COUNT 9.6 10*3/uL (4.8-10.8)
[2020-11-19 15:38] LABS: ALBUMIN 3.8 gm/dl (3.1-4.5); ALKALINE PHOSPHATASE 103 U/L (45-117); BUN 13 mg/dl (7-24); CHLORIDE 110 mmol/L (98-107); CREATININE 0.83 mg/dL (0.55-1.02); POTASSIUM 3.4 mmol/L (3.5-5.1); SGOT/AST 18 IU/L (3-35); SGPT/ALT 31 U/L (12-78); SODIUM 138 mmol/L (136-145); TOTAL PROTEIN 7.7 gm/dL (6.4-8.2)
[2020-11-19 15:47] LABS: TROPONIN I < 0.015 ng/ml (<0.045)
[2020-11-19 22:41] LABS: BILIRUBIN Negative (Negative); BLOOD Negative (Negative); CLARITY Clear (Clear); COLOR Yellow (Yellow); GLUCOSE Negative (Negative); KETONE 3+ (Negative); LEUKO ESTERASE Negative (Negative); NITRITE Negative (Negative); PH 6.5 (4.5-8.0); SPECIFIC GRAVITY 1.015 (1.001-1.030)
[2020-11-19 22:50] LABS: URINE AMPHETAMINES < 1000 (1000ng/ml); URINE BARBITURATES < 200 (200ng/ml); URINE BENZODIAZEPINES < 200 (200ng/ml); URINE CANNABINOIDS (THC) > 50 (50ng/ml); URINE COCAINE < 300 (300ng/ml); URINE METHADONE < 300 (300ng/ml); URINE OPIATES < 300 (300ng/ml)
[2020-11-19 22:51] LABS: URINE PHENCYCLIDINE < 25 (25ng/ml)
[2020-11-19 23:30] LABS: BACTERIA TRACE; RBC 0-2 rbc/hpf (0-2)
== END 2020-11-20 04:04 ==
LOC: ED 14:43
PROVIDERS: Physician Assistant
DX: F29 Unspecified psychosis not due to a substance or known physiological condition (principal); Z20.822 Contact with and (suspected) exposure to COVID-19; F17.200 Nicotine dependence, unspecified, uncomplicated; Z88.6 Allergy status to analgesic agent; Z88.8 Allergy status to other drugs, medicaments and biological substances; Z79.899 Other long term (current) drug therapy

== ENCOUNTER 2020-12-27 15:33 | Emergency (ER) | payer OTHER ==
[~2020-12-27] VITALS: Ht 170.1 cm; Wt 76.2 kg
== END 2020-12-27 17:10 | disposition home or self-care (01) ==
LOC: ED 15:33
DX: S61.210A Laceration without foreign body of right index finger without damage to nail, initial encounter (principal); F17.200 Nicotine dependence, unspecified, uncomplicated; Z88.8 Allergy status to other drugs, medicaments and biological substances; Z79.899 Other long term (current) drug therapy; W45.8XXA Other foreign body or object entering through skin, initial encounter; Y93.89 Activity, other specified; Y92.89 Other specified places as the place of occurrence of the external cause; Y99.8 Other external cause status

== ENCOUNTER → 2021-05-22 | Outpatient (CLI) | payer OTHER ==
[2021-05-22 13:22] LABS: BASO # 0.1 10*3/uL (0.0-0.1); BASO % 0.7 % (0.0-1.0); EOS # 0.1 10*3/uL (0.0-0.4); EOS % 1.5 % (1.0-4.0); LYMPH # 2.4 10*3/uL (1.3-4.4); LYMPH % 29.7 % (27.0-41.0); MEAN CELL VOLUME 86.3 fl (81.0-99.0); MEAN CORPUSCULAR HGB 26.9 pg (27.0-31.0); MEAN CORPUSCULAR HGB CONC 31.2 g/dl (33.0-37.0); MEAN PLATELET VOLUME 10.2 fl (9.6-12.3); MONO # 0.4 10*3/uL (0.1-1.0); MONO % 5.4 % (3.0-9.0); NEUT # 5.1 10*3/uL (2.3-7.9); NEUT % 62.5 % (47.0-73.0); PLATELET COUNT AUTOMATED 243 10*3/uL (130-400); RED BLOOD COUNT 4.98 10*6/uL (4.10-5.10); RED CELL DISTRI WIDTH 17.9 % (0-14.5); WHITE BLOOD COUNT 8.1 10*3/uL (4.8-10.8)
[2021-05-22 13:45] LABS: ALKALINE PHOSPHATASE 63 U/L (45-117); BUN 8 mg/dl (7-24); CHLORIDE 110 mmol/L (98-107); CREATININE 1.05 mg/dL (0.55-1.02); POTASSIUM 3.9 mmol/L (3.5-5.1); SGOT/AST 9 IU/L (3-35); SGPT/ALT 16 U/L (12-78); SODIUM 139 mmol/L (136-145); TOTAL PROTEIN 7.4 gm/dL (6.4-8.2)
== END | disposition home or self-care (01) ==
LOC: LAB 13:02
PROVIDERS: ATTEND Internal Medicine
DX: C50.912 Malignant neoplasm of unspecified site of left female breast (principal); D64.9 Anemia, unspecified

== ENCOUNTER → 2022-05-01 | Outpatient (CLI) | payer OTHER | END | disposition home or self-care (01) | LOC: MRI 04-24 10:00 | PROVIDERS: ATTEND Internal Medicine | DX: M47.26 Other spondylosis with radiculopathy, lumbar region (principal); M51.26 Other intervertebral disc displacement, lumbar region ==

== ENCOUNTER 2022-06-27 20:49 | Emergency (ER) | payer OTHER ==
[~2022-06-27] VITALS: Ht 167.6 cm; Wt 77.1 kg
[2022-06-27 21:14] LABS: BASO # 0.1 10*3/uL (0.0-0.1); BASO % 0.6 % (0.0-1.0); EOS # 0.1 10*3/uL (0.0-0.4); EOS % 0.9 % (1.0-4.0); HEMATOCRIT 42.4 % (37.0-47.0); LYMPH # 3.1 10*3/uL (1.3-4.4); LYMPH % 31.3 % (27.0-41.0); MEAN CELL VOLUME 88.3 fl (81.0-99.0); MEAN CORPUSCULAR HGB 28.8 pg (27.0-31.0); MEAN CORPUSCULAR HGB CONC 32.5 g/dl (33.0-37.0); MEAN PLATELET VOLUME 10.2 fl (9.6-12.3); MONO # 0.6 10*3/uL (0.1-1.0); MONO % 5.6 % (3.0-9.0); NEUT % 61.4 % (47.0-73.0); PLATELET COUNT AUTOMATED 253 10*3/uL (130-400); RED CELL DISTRI WIDTH 15.7 % (0-14.5); WHITE BLOOD COUNT 9.8 10*3/uL (4.8-10.8)
[2022-06-27 21:32] LABS: ALKALINE PHOSPHATASE 79 U/L (46-116); BUN 9 mg/dl (9-23); CHLORIDE 103 mmol/L (98-107); POTASSIUM 3.2 mmol/L (3.4-5.1); SGPT/ALT 13 U/L (10-49); TOTAL PROTEIN 7.4 gm/dL (6.0-8.0)
[2022-06-27 21:34] LABS: BILIRUBIN Negative (Negative); BLOOD Negative (Negative); CLARITY Turbid (Clear); COLOR Dark Yellow (Yellow); GLUCOSE Negative (Negative); KETONE 2+ (Negative); LEUKO ESTERASE Trace (Negative); NITRITE Negative (Negative)
[2022-06-27 21:36] LABS: ETHYL ALCOHOL < 3.0 mg/dl (<3)
[2022-06-27 21:41] LABS: URINE AMPHETAMINES Positive (1000ng/ml); URINE BARBITURATES Negative (200ng/ml); URINE BENZODIAZEPINES Negative (200ng/ml); URINE CANNABINOIDS (THC) Positive (50ng/ml); URINE COCAINE Negative (300ng/ml); URINE METHADONE Negative (300ng/ml); URINE OPIATES Negative (300ng/ml); URINE PHENCYCLIDINE Negative (25ng/ml)
[2022-06-27 21:51] LABS: BACTERIA 3+
[2022-06-28] MEDS ORDERED: PANTOPRAZOLE SO40 MG PO (07:19)
[2022-06-28] MEDS ORDERED: TRAZODONE100 MG PO (07:20)
[2022-06-28] MEDS ORDERED: OLANZAPINE15 M2 PO (07:20)
[2022-06-28] MEDS ORDERED: ZYPREXA15 M1 PO (13:03)
== END 2022-06-28 13:07 | disposition home or self-care (01) ==
LOC: ED 20:49
PROVIDERS: Internal Medicine
DX: F31.9 Bipolar disorder, unspecified (principal); Z88.8 Allergy status to other drugs, medicaments and biological substances; Z90.49 Acquired absence of other specified parts of digestive tract; Z90.710 Acquired absence of both cervix and uterus; Z98.890 Other specified postprocedural states; Z87.891 Personal history of nicotine dependence

== ENCOUNTER → 2022-07-15 | Outpatient (CLI) | payer OTHER ==
[~2022-07-15] MED LIST changes: +OLANZAPINE15 M2 PO; +TRAZODONE100 MG PO; +ZYPREXA15 M1 PO
[2022-07-15 12:26] LABS: BASO # 0.1 10*3/uL (0.0-0.1); BASO % 0.9 % (0.0-1.0); EOS # 0.1 10*3/uL (0.0-0.4); EOS % 1.2 % (1.0-4.0); HEMATOCRIT 41.7 % (37.0-47.0); LYMPH # 3.6 10*3/uL (1.3-4.4); LYMPH % 38.2 % (27.0-41.0); MEAN CELL VOLUME 89.9 fl (81.0-99.0); MEAN CORPUSCULAR HGB 28.7 pg (27.0-31.0); MEAN CORPUSCULAR HGB CONC 31.9 g/dl (33.0-37.0); MONO # 0.6 10*3/uL (0.1-1.0); MONO % 6.5 % (3.0-9.0); NEUT % 52.9 % (47.0-73.0); PLATELET COUNT AUTOMATED 250 10*3/uL (130-400); RED BLOOD COUNT 4.64 10*6/uL (4.10-5.10); RED CELL DISTRI WIDTH 15.8 % (0-14.5); RETICULOCYTE % 1.69 % (0.50-2.50); WHITE BLOOD COUNT 9.4 10*3/uL (4.8-10.8)
[2022-07-15 12:52] LABS: ALKALINE PHOSPHATASE 87 U/L (46-116); BUN 5 mg/dl (9-23); CHLORIDE 103 mmol/L (98-107); POTASSIUM 3.6 mmol/L (3.4-5.1); SGPT/ALT 13 U/L (10-49); TOTAL PROTEIN 6.7 gm/dL (6.0-8.0)
[2022-07-16 05:06] LABS: HBSAG Negative (Negative); HEP B CORE AB, IGM Negative (Negative); HEPATITIS C ANTIBODY Non Reactive (Non Reactive)
== END | disposition home or self-care (01) ==
LOC: LAB 01:05
PROVIDERS: Internal Medicine; ATTEND Internal Medicine Hematology & Oncology
DX: Z51.81 Encounter for therapeutic drug level monitoring (principal); C50.912 Malignant neoplasm of unspecified site of left female breast; R68.89 Other general symptoms and signs; Z20.822 Contact with and (suspected) exposure to COVID-19; Z79.899 Other long term (current) drug therapy

== ENCOUNTER → 2023-06-17 | Outpatient (CLI) | payer OTHER ==
[~2023-06-17] MED LIST changes: +ZYPREXA10 M1 PO
[2023-06-17 16:18] LABS: BASO # 0.1 10*3/uL (0.0-0.1); BASO % 1.1 % (0.0-1.0); EOS # 0.2 10*3/uL (0.0-0.4); HEMATOCRIT 44.8 % (37.0-47.0); LYMPH # 3.5 10*3/uL (1.3-4.4); LYMPH % 40.8 % (27.0-41.0); MEAN CELL VOLUME 94.1 fl (81.0-99.0); MEAN CORPUSCULAR HGB 29.4 pg (27.0-31.0); MEAN CORPUSCULAR HGB CONC 31.3 g/dl (33.0-37.0); MEAN PLATELET VOLUME 9.8 fl (9.6-12.3); MONO # 0.5 10*3/uL (0.1-1.0); MONO % 5.3 % (3.0-9.0); NEUT # 4.3 10*3/uL (2.3-7.9); NEUT % 50.7 % (47.0-73.0); PLATELET COUNT AUTOMATED 268 10*3/uL (130-400); RED BLOOD COUNT 4.76 10*6/uL (4.10-5.10); RED CELL DISTRI WIDTH 15.7 % (0-14.5); WHITE BLOOD COUNT 8.5 10*3/uL (4.8-10.8)
[2023-06-17 16:56] LABS: ALKALINE PHOSPHATASE 107 U/L (46-116); BUN 9 mg/dl (9-23); CHLORIDE 105 mmol/L (98-107); CHOLESTEROL 186 mg/dL (<200); LDL CHOLESTEROL 107 mg/dL (9-159); POTASSIUM 3.5 mmol/L (3.4-5.1); TRIGLYCERIDES 75 mg/dl (<150)
[2023-06-17 16:59] LABS: SGPT/ALT < 7 U/L (5-49)
== END | disposition home or self-care (01) ==
LOC: LAB 16:01
PROVIDERS: ATTEND Internal Medicine
DX: Z13.9 Encounter for screening, unspecified (principal); Z72.9 Problem related to lifestyle, unspecified

== ENCOUNTER 2024-07-05 16:27 | Inpatient (IN) | payer OTHER ==
[~2024-07-05] VITALS: Ht 167.6 cm; Wt 70.1 kg
[2024-07-05 16:42] VITALS: BP 108/74
[2024-07-05 18:52] LABS: BASO # 0.1 10*3/uL (0.0-0.1); BASO % 0.8 % (0.0-1.0); EOS % 0.3 % (1.0-4.0); HEMATOCRIT 45.6 % (37.0-47.0); MEAN CORPUSCULAR HGB CONC 33.3 g/dl (33.0-37.0); MEAN PLATELET VOLUME 11.2 fl (9.6-12.3); MONO # 0.5 10*3/uL (0.1-1.0); MONO % 4.1 % (3.0-9.0); NEUT # 8.9 10*3/uL (2.3-7.9); NEUT % 70.1 % (47.0-73.0); PLATELET COUNT AUTOMATED 282 10*3/uL (130-400); RED BLOOD COUNT 4.75 10*6/uL (4.10-5.10); RED CELL DISTRI WIDTH 16.4 % (0-14.5); WHITE BLOOD COUNT 12.7 10*3/uL (4.8-10.8)
[2024-07-05 19:29] LABS: ALKALINE PHOSPHATASE 138 U/L (46-116); BUN 10 mg/dl (9-23); CHLORIDE 102 mmol/L (98-107); CPK 207 U/L (34-171); POTASSIUM 2.5 mmol/L (3.4-5.1); SGPT/ALT 32 U/L (5-49); TOTAL PROTEIN 7.8 gm/dL (6.0-8.0)
[2024-07-05 19:30] LABS: ETHYL ALCOHOL < 3.0 mg/dl (<3)
[2024-07-05] MEDS ORDERED: ARIPIPRAZOLE5 MG PO (19:47)
[2024-07-05] MEDS ORDERED: FEXOFENADINE H180 M1 PO (19:50)
[2024-07-05] MEDS ORDERED: TRAZODONE50 MG PO (19:51)
[2024-07-05] MEDS ORDERED: HALOPERIDOL1 MG PO (19:51)
[2024-07-05] MEDS ORDERED: POTASSIUM CHLORIDE 20 MEQ TAB PO ONE (20:15)
[2024-07-05] MEDS ORDERED: SODIUM CHLORIDE 0.9% 1,000 ML IV ONE (20:15)
[2024-07-05 20:33] LABS: BILIRUBIN Negative (Negative); BLOOD Trace-Lysed (Negative); CLARITY Clear (Clear); COLOR Yellow (Yellow); GLUCOSE Negative (Negative); KETONE 2+ (Negative); LEUKO ESTERASE Negative (Negative); NITRITE Negative (Negative); PH 6.5 (4.5-8.0); SPECIFIC GRAVITY 1.015 (1.001-1.030)
[2024-07-05 20:41] LABS: URINE AMPHETAMINES Positive (1000ng/ml); URINE BARBITURATES Negative (200ng/ml); URINE BENZODIAZEPINES Positive (200ng/ml); URINE CANNABINOIDS (THC) Positive (50ng/ml); URINE COCAINE Negative (300ng/ml); URINE METHADONE Negative (300ng/ml); URINE OPIATES Negative (300ng/ml); URINE PHENCYCLIDINE Negative (25ng/ml)
[2024-07-05 20:57] LABS: EPITHELIAL CELLS 16-20; YEAST 1+
[2024-07-05 20:58] LABS: RBC 0-2 rbc/hpf (0-2)
[2024-07-05 21:29] VITALS: BP 101/71
[2024-07-05] MEDS ORDERED: POTASSIUM CHLORIDE IN WATER 100 ML IV SCH (22:00)
[2024-07-05] MEDS ORDERED: ACETAMINOPHEN 325 MG TAB PO PRN (22:45)
[2024-07-05] MEDS ORDERED: Magnesium Hydroxide 30 ML UDC PO PRN (22:45)
[2024-07-05] MEDS ORDERED: BISACODYL 5 MG TAB PO PRN (22:45)
[2024-07-05] MEDS ORDERED: BISACODYL 10 MG SUPP R PRN (22:45)
[2024-07-05] MEDS ORDERED: Pantoprazole Sodium 40 MG TAB PO PRN (22:50)
[2024-07-05] MEDS ORDERED: SODIUM CHLORIDE 0.9% 1,000 ML IV SCH (22:55)
[2024-07-06] VITALS (7 sets, daily range): BP systolic 94–141; BP diastolic 55–70
[2024-07-06 06:12] LABS: BASO # 0.1 10*3/uL (0.0-0.1); BASO % 0.8 % (0.0-1.0); EOS # 0.2 10*3/uL (0.0-0.4); EOS % 1.9 % (1.0-4.0); HEMATOCRIT 35.8 % (37.0-47.0); MEAN CELL VOLUME 98.6 fl (81.0-99.0); MEAN CORPUSCULAR HGB 32.2 pg (27.0-31.0); MEAN CORPUSCULAR HGB CONC 32.7 g/dl (33.0-37.0); MEAN PLATELET VOLUME 11.3 fl (9.6-12.3); MONO # 0.4 10*3/uL (0.1-1.0); MONO % 5.2 % (3.0-9.0); NEUT # 5.1 10*3/uL (2.3-7.9); NEUT % 60.8 % (47.0-73.0); RED BLOOD COUNT 3.63 10*6/uL (4.10-5.10); RED CELL DISTRI WIDTH 16.6 % (0-14.5); RETICULOCYTE % 2.02 % (0.50-2.50); WHITE BLOOD COUNT 8.4 10*3/uL (4.8-10.8)
[2024-07-06 06:27] LABS: ALKALINE PHOSPHATASE 89 U/L (46-116); BUN 8 mg/dl (9-23); CHLORIDE 112 mmol/L (98-107); POTASSIUM 2.9 mmol/L (3.4-5.1); SGPT/ALT 21 U/L (5-49); TOTAL PROTEIN 5.1 gm/dL (6.0-8.0)
[2024-07-06 06:35] LABS: PLATELET COUNT AUTOMATED 194 10*3/uL (130-400)
[2024-07-06] MEDS ORDERED: POTASSIUM CHLORIDE 20 MEQ TAB PO ONE ×2 (07:20→13:00)
[2024-07-06] MEDS ORDERED: cefTRIAXone Sodium 1 GM in SYRINGE INFUSION 10 ML IV SCH (10:00)
[2024-07-06] MEDS ORDERED: Enoxaparin Sodium 40 MG/0.4 ML SYR SC SCH (10:00)
[2024-07-06] MEDS ORDERED: Potassium Phosphate, Monobas 500 MG TAB PO SCH (12:00)
[2024-07-06 14:18] LABS: BUN 9 mg/dl (9-23); CHLORIDE 112 mmol/L (98-107); POTASSIUM 3.2 mmol/L (3.4-5.1)
[2024-07-06 19:37] LABS: BUN 7 mg/dl (9-23); CHLORIDE 113 mmol/L (98-107); POTASSIUM 3.3 mmol/L (3.4-5.1)
[2024-07-07] VITALS: BP 103/62; BP 106/70
[2024-07-07] MEDS ORDERED: hydrOXYzine pamoate 25 MG CAP PO ONE (00:30)
[2024-07-07 04:00] VITALS: BP 109/74
[2024-07-07 06:41] LABS: BASO # 0.1 10*3/uL (0.0-0.1); BASO % 0.9 % (0.0-1.0); EOS # 0.1 10*3/uL (0.0-0.4); EOS % 2.2 % (1.0-4.0); HEMATOCRIT 35.3 % (37.0-47.0); MEAN CELL VOLUME 98.1 fl (81.0-99.0); MEAN CORPUSCULAR HGB 31.9 pg (27.0-31.0); MEAN CORPUSCULAR HGB CONC 32.6 g/dl (33.0-37.0); MONO # 0.3 10*3/uL (0.1-1.0); NEUT % 46.6 % (47.0-73.0); PLATELET COUNT AUTOMATED 184 10*3/uL (130-400); RED CELL DISTRI WIDTH 17.2 % (0-14.5); WHITE BLOOD COUNT 6.4 10*3/uL (4.8-10.8)
[2024-07-07 07:08] LABS: BUN 6 mg/dl (9-23); CHLORIDE 114 mmol/L (98-107); POTASSIUM 3.1 mmol/L (3.4-5.1)
[2024-07-07 08:00] VITALS: BP 103/64
[2024-07-07] MEDS ORDERED: Phosphorus/Potassium 1.45 GM PACKET PO SCH (08:55)
[2024-07-07 12:00] VITALS: BP 105/70
[2024-07-07 16:00] VITALS: BP 93/56
[2024-07-07 20:00] VITALS: BP 93/64
[2024-07-08] VITALS: BP 96/55
[2024-07-08 05:45] LABS: BUN 5 mg/dl (9-23); CHLORIDE 112 mmol/L (98-107); POTASSIUM 2.7 mmol/L (3.4-5.1)
[2024-07-08] MEDS ORDERED: POTASSIUM CHLORIDE 20 MEQ TAB PO ONE (07:50)
[2024-07-08 08:00] VITALS: BP 110/83
[2024-07-08] MEDS ORDERED: CITALOPRAM 20 MG TAB PO SCH (10:00)
[2024-07-08] MEDS ORDERED: ARIPiprazole 5 MG TAB PO SCH (10:00)
[2024-07-08] MEDS ORDERED: clonAZEPAM 0.5 MG TAB PO SCH (10:21)
[2024-07-08 12:00] VITALS: BP 110/73
== END 2024-07-08 19:19 | disposition left against medical advice (07) | DRG 917 ==
LOC: ED 16:27 → EDHOLD 21:54 → 4E 21:54
PROVIDERS: Nurse Practitioner Family; Student in an Organized Health Care Education/Training Program; ADMIT Internal Medicine; ATTEND Internal Medicine
DX: T42.4X1A Poisoning by benzodiazepines, accidental (unintentional), initial encounter (principal); G92.8 Other toxic encephalopathy; N17.0 Acute kidney failure with tubular necrosis; R65.11 Systemic inflammatory response syndrome (SIRS) of non-infectious origin with acute organ dysfunction; N39.0 Urinary tract infection, site not specified; E86.0 Dehydration; E87.6 Hypokalemia; F12.10 Cannabis abuse, uncomplicated; F15.10 Other stimulant abuse, uncomplicated; J44.9 Chronic obstructive pulmonary disease, unspecified; F11.10 Opioid abuse, uncomplicated; F14.10 Cocaine abuse, uncomplicated; F25.0 Schizoaffective disorder, bipolar type; Z53.29 Procedure and treatment not carried out because of patient's decision for other reasons; R31.9 Hematuria, unspecified; F17.210 Nicotine dependence, cigarettes, uncomplicated; F13.10 Sedative, hypnotic or anxiolytic abuse, uncomplicated; F41.1 Generalized anxiety disorder; K21.9 Gastro-esophageal reflux disease without esophagitis; G62.9 Polyneuropathy, unspecified; F19.10 Other psychoactive substance abuse, uncomplicated; Z86.718 Personal history of other venous thrombosis and embolism; Z79.899 Other long term (current) drug therapy; Z79.01 Long term (current) use of anticoagulants; Z79.2 Long term (current) use of antibiotics; Z88.8 Allergy status to other drugs, medicaments and biological substances; Z91.09 Other allergy status, other than to drugs and biological substances; Z85.3 Personal history of malignant neoplasm of breast; Z90.49 Acquired absence of other specified parts of digestive tract; Z90.710 Acquired absence of both cervix and uterus; Z90.13 Acquired absence of bilateral breasts and nipples; Z82.49 Family history of ischemic heart disease and other diseases of the circulatory system; Z83.438 Family history of other disorder of lipoprotein metabolism and other lipidemia; Z83.3 Family history of diabetes mellitus; Z82.0 Family history of epilepsy and other diseases of the nervous system; Z71.6 Tobacco abuse counseling; Z91.148 Patient's other noncompliance with medication regimen for other reason

== ENCOUNTER 2024-09-10 01:08 | Emergency (ER) | payer OTHER ==
[~2024-09-10] VITALS: Ht 170.1 cm; Wt 68.1 kg
[~2024-09-10 01:08] MED LIST changes: +ARIPIPRAZOLE5 MG PO; +FEXOFENADINE H180 M1 PO; +HALOPERIDOL1 MG PO; +TRAZODONE50 MG PO
[2024-09-10 01:28] LABS: BASO # 0.1 10*3/uL (0.0-0.1); BASO % 0.8 % (0.0-1.0); EOS # 0.1 10*3/uL (0.0-0.4); EOS % 0.9 % (1.0-4.0); MEAN CELL VOLUME 100.0 fl (81.0-99.0); MEAN CORPUSCULAR HGB 31.8 pg (27.0-31.0); MEAN PLATELET VOLUME 10.7 fl (9.6-12.3); MONO # 0.6 10*3/uL (0.1-1.0); MONO % 5.3 % (3.0-9.0); NEUT # 6.6 10*3/uL (2.3-7.9); NEUT % 63.8 % (47.0-73.0); NUCLEATED RED BLOOD CELL 0.0 % (0.0-0.0); NUCLEATED RED BLOOD CELL 0.0 10*3/uL (0.0-0.0); PLATELET COUNT AUTOMATED 231 10*3/uL (130-400); RED CELL DISTRI WIDTH 14.6 % (0-14.5)
[2024-09-10 01:41] LABS: BILIRUBIN Negative (Negative); BLOOD Negative (Negative); CLARITY Clear (Clear); COLOR Yellow (Yellow); KETONE 1+ (Negative); LEUKO ESTERASE 1+ (Negative); NITRITE Negative (Negative); PH 6.5 (4.5-8.0); SPECIFIC GRAVITY 1.015 (1.001-1.030); UROBILINOGEN 1.0 E.U./dl (0.0-1.0)
[2024-09-10 01:47] LABS: BACTERIA 1+; EPITHELIAL CELLS 21-30; MUCOUS 1+; RBC 0-2 rbc/hpf (0-2)
[2024-09-10 01:49] LABS: BUN 10 mg/dl (9-23); SGPT/ALT 23 U/L (5-49)
[2024-09-10 01:52] LABS: URINE AMPHETAMINES Positive (1000ng/ml); URINE BARBITURATES Negative (200ng/ml); URINE BENZODIAZEPINES Negative (200ng/ml); URINE CANNABINOIDS (THC) Positive (50ng/ml); URINE COCAINE Positive (300ng/ml); URINE METHADONE Negative (300ng/ml); URINE OPIATES Negative (300ng/ml); URINE PHENCYCLIDINE Negative (25ng/ml)
[2024-09-10 01:53] LABS: ETHYL ALCOHOL < 3.0 mg/dl (<3)
[2024-09-10] MEDS ORDERED: POTASSIUM CHLORIDE 20 MEQ TAB PO ONE (02:00)
[2024-09-10] MEDS ORDERED: LORazepam 1 MG TAB PO ONE (02:00)
== END 2024-09-10 12:34 | disposition home or self-care (01) ==
LOC: ED 01:08
PROVIDERS: Internal Medicine
DX: F29 Unspecified psychosis not due to a substance or known physiological condition (principal); F19.10 Other psychoactive substance abuse, uncomplicated; F20.9 Schizophrenia, unspecified; F41.9 Anxiety disorder, unspecified; Z88.8 Allergy status to other drugs, medicaments and biological substances; Z88.1 Allergy status to other antibiotic agents; Z79.899 Other long term (current) drug therapy; Z90.49 Acquired absence of other specified parts of digestive tract; Z90.711 Acquired absence of uterus with remaining cervical stump; Z87.891 Personal history of nicotine dependence

== ENCOUNTER → 2024-10-25 | Outpatient (CLI) | payer OTHER ==
[2024-10-25 14:28] LABS: BASO # 0.1 10*3/uL (0.0-0.1); BASO % 0.9 % (0.0-1.0); EOS # 0.1 10*3/uL (0.0-0.4); EOS % 1.5 % (1.0-4.0); MEAN CELL VOLUME 99.4 fl (81.0-99.0); MEAN CORPUSCULAR HGB 30.8 pg (27.0-31.0); MEAN PLATELET VOLUME 10.6 fl (9.6-12.3); MONO # 0.4 10*3/uL (0.1-1.0); MONO % 4.5 % (3.0-9.0); NEUT # 5.4 10*3/uL (2.3-7.9); NEUT % 57.6 % (47.0-73.0); NUCLEATED RED BLOOD CELL 0.0 % (0.0-0.0); NUCLEATED RED BLOOD CELL 0.0 10*3/uL (0.0-0.0); PLATELET COUNT AUTOMATED 244 10*3/uL (130-400); RED CELL DISTRI WIDTH 15.8 % (0-14.5)
[2024-10-25 14:54] LABS: BUN 6 mg/dl (9-23); LDL CHOLESTEROL 49 mg/dL (9-159); SGPT/ALT 19 U/L (5-49)
== END | disposition home or self-care (01) ==
LOC: LAB 13:08 → US 13:30
PROVIDERS: Internal Medicine; ATTEND Nurse Practitioner Women's Health
DX: C50.112 Malignant neoplasm of central portion of left female breast (principal); N63.14 Unspecified lump in the right breast, lower inner quadrant; N63.21 Unspecified lump in the left breast, upper outer quadrant; E78.5 Hyperlipidemia, unspecified; R68.89 Other general symptoms and signs; E03.9 Hypothyroidism, unspecified; D17.79 Benign lipomatous neoplasm of other sites; Z98.86 Personal history of breast implant removal; Z79.899 Other long term (current) drug therapy